=== PATIENT | male | born 1965 | race Caucasian/White ===

== ENCOUNTER 2020-02-06 09:58 | Outpatient (REF) | payer OTHER, SELFPAY ==
[2020-02-06 11:39] LABS: Estimated Average Glucose 148 mg/dL; Hemoglobin A1c % 6.8 %
[2020-02-06 12:03] LABS: Alanine Aminotransferase 22 U/L (0-40); Albumin Level 4.3 g/dL (3.5-5.0); Alkaline Phosphatase 82 U/L (39-117); Anion Gap 13 (12-20); Aspartate Amino Transferase 16 U/L (5-37); Bilirubin Total 1.1 mg/dL (0.0-1.0); Blood Urea Nitrogen 15 mg/dL (9-16); Calcium 8.8 mg/dL (8.4-10.2); Carbon Dioxide 29 mmol/L (22-29); Chloride 101 mmol/L (96-108); Cholesterol 171 mg/dL; Estimated Glomerular Filt Rate > 60; Glucose Fasting 171 mg/dL (60-99); HDL Cholesterol 48 mg/dL; LDL Cholesterol Calculated 99 mg/dl; Potassium 4.3 mmol/l (3.3-5.1); Sodium 139 mmol/L (135-145); Total Protein 7.1 g/dL (6.5-8.0); Triglycerides 123 mg/dL
[2020-02-06 12:41] LABS: Creatinine Urine 62.85 mg/dL; Microalbum/Creatinine Ratio Ur 9.5 ug/mg cr
== END 2020-02-06 09:59 | disposition home or self-care (01) ==
LOC: HO.HMGCLDS 09:58
PROVIDERS: PCP Internal Medicine; Visit Provider Internal Medicine
DX: F41.9 Anxiety disorder, unspecified (principal); E78.5 Hyperlipidemia, unspecified; I10 Essential (primary) hypertension; E11.9 Type 2 diabetes mellitus without complications
CPT/HCPCS: 80053; 80061; 82043; 83036

== ENCOUNTER 2020-06-10 10:19 | Outpatient (REF) | payer OTHER, SELFPAY ==
[2020-06-10 12:02] LABS: Estimated Average Glucose 151 mg/dL; Hemoglobin A1c % 6.9 %
[2020-06-10 12:18] LABS: Alanine Aminotransferase 27 U/L (0-40); Albumin Level 4.4 g/dL (3.5-5.0); Alkaline Phosphatase 86 U/L (39-117); Anion Gap 13 (12-20); Aspartate Amino Transferase 18 U/L (5-37); Bilirubin Total 1.3 mg/dL (0.0-1.0); Blood Urea Nitrogen 16 mg/dL (9-16); Calcium 9.2 mg/dL (8.4-10.2); Carbon Dioxide 29 mmol/L (22-29); Chloride 102 mmol/L (96-108); Cholesterol 179 mg/dL; Estimated Glomerular Filt Rate > 60; Glucose Fasting 161 mg/dL (60-99); HDL Cholesterol 44 mg/dL; LDL Cholesterol Calculated 108 mg/dl; Potassium 4.1 mmol/L (3.3-5.1); Sodium 140 mmol/L (135-145); Triglycerides 137 mg/dL
[2020-06-10 12:22] LABS: Creatinine Urine 48.06 mg/dL; Microalbumin Urine < 5.0 mg/L
== END 2020-06-10 10:20 | disposition home or self-care (01) ==
LOC: HO.HMGCLDS 10:19
PROVIDERS: PCP Internal Medicine; Visit Provider Internal Medicine
DX: I10 Essential (primary) hypertension (principal); E11.9 Type 2 diabetes mellitus without complications; E78.5 Hyperlipidemia, unspecified
CPT/HCPCS: 36415; 80053; 80061; 82043; 83036

== ENCOUNTER 2020-11-01 09:25 | Outpatient (REF) | payer OTHER, SELFPAY ==
[2020-11-01 11:48] LABS: Estimated Average Glucose 137 mg/dL; Hemoglobin A1c % 6.4 %
[2020-11-01 11:52] LABS: Alanine Aminotransferase 16 U/L (0-40); Albumin Level 4.3 g/dL (3.5-5.0); Alkaline Phosphatase 73 U/L (39-117); Anion Gap 14 (12-20); Aspartate Amino Transferase 15 U/L (5-37); Bilirubin Total 1.2 mg/dL (0.0-1.0); Blood Urea Nitrogen 18 mg/dL (9-16); Calcium 9.5 mg/dL (8.4-10.2); Carbon Dioxide 27 mmol/L (22-29); Chloride 104 mmol/L (96-108); Cholesterol 144 mg/dL; Estimated Glomerular Filt Rate > 60; Glucose Fasting 135 mg/dL (60-99); HDL Cholesterol 41 mg/dL; LDL Cholesterol Calculated 81 mg/dl; Potassium 4.1 mmol/L (3.3-5.1); Sodium 141 mmol/L (135-145); Total Protein 7.3 g/dL (6.5-8.0); Triglycerides 111 mg/dL
[2020-11-01 12:01] LABS: Creatinine Urine 70.87 mg/dL; Microalbum/Creatinine Ratio Ur 12.6 ug/mg cr
== END 2020-11-01 09:26 | disposition home or self-care (01) ==
LOC: HO.HMGCLDS 09:25
PROVIDERS: PCP Internal Medicine; Visit Provider Internal Medicine
DX: E11.9 Type 2 diabetes mellitus without complications (principal); E78.5 Hyperlipidemia, unspecified; I10 Essential (primary) hypertension
CPT/HCPCS: 36415; 80053; 80061; 82043; 83036

== ENCOUNTER 2021-02-18 08:40 | Outpatient (REF) | payer OTHER, SELFPAY ==
[2021-02-18 12:05] LABS: Estimated Average Glucose 128 mg/dL; Hemoglobin A1c % 6.1 %
[2021-02-18 12:12] LABS: Alanine Aminotransferase 16 U/L (0-40); Albumin Level 4.3 g/dL (3.5-5.0); Alkaline Phosphatase 74 U/L (39-117); Anion Gap 14 (12-20); Aspartate Amino Transferase 15 U/L (5-37); Bilirubin Total 1.1 mg/dL (0.0-1.0); Blood Urea Nitrogen 18 mg/dL (9-16); Calcium 9.2 mg/dL (8.4-10.2); Carbon Dioxide 28 mmol/L (22-29); Chloride 104 mmol/L (96-108); Cholesterol 167 mg/dL; Estimated Glomerular Filt Rate > 60; Glucose Fasting 102 mg/dL (60-99); HDL Cholesterol 42 mg/dL; LDL Cholesterol Calculated 97 mg/dl; Potassium 4.3 mmol/L (3.3-5.1); Sodium 142 mmol/L (135-145); Total Protein 7.2 g/dL (6.5-8.0); Triglycerides 141 mg/dL
== END 2021-02-18 08:41 | disposition home or self-care (01) ==
LOC: HO.HMGCLDS 08:40
PROVIDERS: PCP Internal Medicine; Visit Provider Internal Medicine
DX: E11.9 Type 2 diabetes mellitus without complications (principal); E78.5 Hyperlipidemia, unspecified; I10 Essential (primary) hypertension
CPT/HCPCS: 36415; 80053; 80061; 83036

== ENCOUNTER 2021-02-25 11:37 | Outpatient (REF) | payer OTHER, SELFPAY ==
[2021-02-25 14:42] LABS: Prostate Specific Antigen Scr 0.66 ng/mL (<0.05-4.0); Vitamin D 25-OH Total 40.6 ng/mL (>30)
[2021-02-25 14:44] LABS: SARS COV2 IgG Negative (Negative)
== END 2021-02-25 11:38 | disposition home or self-care (01) ==
LOC: HO.HMGCLDS 11:37
PROVIDERS: PCP Internal Medicine; Visit Provider Internal Medicine
DX: Z00.00 Encounter for general adult medical examination without abnormal findings (principal); Z12.5 Encounter for screening for malignant neoplasm of prostate; Z20.822 Contact with and (suspected) exposure to COVID-19; E55.9 Vitamin D deficiency, unspecified
CPT/HCPCS: 36415; 82306; 84153; 86769

== ENCOUNTER 2021-03-09 11:10 | Outpatient (REF) | payer OTHER, SELFPAY | END 2021-03-09 11:11 | disposition home or self-care (01) | LOC: HO.HMGCLDS 11:10 | PROVIDERS: Visit Provider Internal Medicine | DX: Z20.822 Contact with and (suspected) exposure to COVID-19 (principal) | CPT/HCPCS: C9803; U0003; U0005 ==

== ENCOUNTER 2021-08-19 08:59 | Outpatient (REF) | payer OTHER, SELFPAY ==
[2021-08-19 11:26] LABS: Hematocrit 44.6 % (42.0-52.0); Hemoglobin 15.1 g/dl (14.0-18.0); Mean Corpuscular HGB Conc 33.9 g/dl (31.0-36.0); Mean Corpuscular Hemoglobin 29.2 pg (27.0-33.0); Mean Corpuscular Volume 86.1 fL (80.0-98.0); Mean Platelet Volume 10.8 fL (9.4-12.4); Platelet Count 228 X10*3/uL (160-400); Red Blood Count 5.18 X10*6/uL (4.60-5.80); White Blood Count 3.9 X10*3/uL (4.8-10.8)
[2021-08-19 11:33] LABS: Estimated Average Glucose 134 mg/dL; Hemoglobin A1c % 6.3 %
[2021-08-19 11:43] LABS: Alanine Aminotransferase 21 U/L (0-40); Albumin Level 4.2 g/dL (3.5-5.0); Alkaline Phosphatase 73 U/L (39-117); Anion Gap 12 (12-20); Aspartate Amino Transferase 17 U/L (5-37); Blood Urea Nitrogen 17 mg/dL (9-16); Calcium 9.4 mg/dL (8.4-10.2); Carbon Dioxide 27 mmol/L (22-29); Chloride 106 mmol/L (96-108); Cholesterol 149 mg/dL; Estimated Glomerular Filt Rate > 60; Glucose Fasting 116 mg/dL (60-99); HDL Cholesterol 42 mg/dL; LDL Cholesterol Calculated 93 mg/dl; Potassium 3.9 mmol/L (3.3-5.1); Sodium 141 mmol/L (135-145); Triglycerides 72 mg/dL
[2021-08-19 11:57] LABS: Creatinine Urine 68.54 mg/dL; Microalbum/Creatinine Ratio Ur 10.2 ug/mg cr
== END 2021-08-19 09:00 | disposition home or self-care (01) ==
LOC: HO.HMGCLDS 08:59
PROVIDERS: PCP Internal Medicine; Visit Provider Internal Medicine
DX: E11.9 Type 2 diabetes mellitus without complications (principal); I10 Essential (primary) hypertension; E78.5 Hyperlipidemia, unspecified
CPT/HCPCS: 36415; 80053; 80061; 82043; 83036; 85027

== ENCOUNTER 2022-03-01 08:12 | Outpatient (REF) | payer OTHER, SELFPAY ==
[2022-03-01 11:18] LABS: MANUAL DIFF FLAG NO
[2022-03-01 11:36] LABS: Basophils Percent Auto 0.7 % (0-2); Eosinophils Absolute Auto 0.2 X10*3/uL (0.0-0.4); Eosinophils Percent Auto 2.5 % (0-4); Hematocrit 46.7 % (42.0-52.0); Hemoglobin 15.6 g/dl (14.0-18.0); Imm Gran Abs Auto 0.04 X10*3/uL (0.00-0.03); Imm Gran Pct Auto 0.7 % (0.0-0.4); Lymphocytes Absolute Auto 2.1 X10*3/uL (1.2-4.9); Lymphocytes Percent Auto 35.6 % (20-40); Mean Corpuscular HGB Conc 33.4 g/dl (31.0-36.0); Mean Corpuscular Hemoglobin 29.1 pg (27.0-33.0); Mean Platelet Volume 10.7 fL (9.4-12.4); Monocytes Absolute Auto 0.6 X10*3/uL (0.1-1.2); Monocytes Percent Auto 9.4 % (2-11); Neutrophils Absolute Auto 3.1 x10*3/uL (2.0-8.3); Neutrophils Percent Auto 51.1 % (45-73); Platelet Count 231 X10*3/uL (160-400); Red Blood Count 5.37 X10*6/uL (4.60-5.80); Red Cell Distribution Width 13.1 % (11.0-16.0)
[2022-03-01 11:52] LABS: Estimated Average Glucose 140 mg/dL; Hemoglobin A1c % 6.5 %
[2022-03-01 11:57] LABS: Alanine Aminotransferase 32 U/L (0-40); Albumin Level 4.5 g/dL (3.5-5.0); Alkaline Phosphatase 91 U/L (39-117); Anion Gap 15 (12-20); Aspartate Amino Transferase 24 U/L (5-37); Bilirubin Total 0.9 mg/dL (0.0-1.0); Blood Urea Nitrogen 19 mg/dL (9-16); Calcium 9.4 mg/dL (8.4-10.2); Carbon Dioxide 27 mmol/L (22-29); Chloride 102 mmol/L (96-108); Cholesterol 177 mg/dL; Estimated Glomerular Filt Rate > 60; Glucose Fasting 144 mg/dL (60-99); HDL Cholesterol 46 mg/dL; LDL Cholesterol Calculated 99 mg/dl; Potassium 3.8 mmol/L (3.3-5.1); Sodium 140 mmol/L (135-145); Total Protein 7.4 g/dL (6.5-8.0); Triglycerides 164 mg/dL
[2022-03-01 12:08] LABS: Creatinine Urine 42.17 mg/dL; Microalbum/Creatinine Ratio Ur 40.3 ug/mg cr
== END 2022-03-01 08:13 | disposition home or self-care (01) ==
LOC: HO.HMGCLDS 08:12
PROVIDERS: PCP Internal Medicine; Visit Provider Internal Medicine
DX: Z00.00 Encounter for general adult medical examination without abnormal findings (principal); E78.5 Hyperlipidemia, unspecified; I10 Essential (primary) hypertension; E11.9 Type 2 diabetes mellitus without complications
CPT/HCPCS: 36415; 80053; 80061; 82043; 83036; 85025

== ENCOUNTER 2022-05-31 08:50 | Outpatient (REF) | payer OTHER, SELFPAY ==
[2022-05-31 11:27] LABS: MANUAL DIFF FLAG NO
[2022-05-31 12:04] LABS: Basophils Percent Auto 0.6 % (0-2); Eosinophils Absolute Auto 0.1 X10*3/uL (0.0-0.4); Eosinophils Percent Auto 1.7 % (0-4); Hematocrit 41.4 % (42.0-52.0); Imm Gran Abs Auto 0.02 X10*3/uL (0.00-0.03); Imm Gran Pct Auto 0.4 % (0.0-0.4); Lymphocytes Percent Auto 38.9 % (20-40); Mean Corpuscular HGB Conc 33.8 g/dl (31.0-36.0); Mean Corpuscular Hemoglobin 29.4 pg (27.0-33.0); Mean Platelet Volume 10.7 fL (9.4-12.4); Monocytes Absolute Auto 0.4 X10*3/uL (0.1-1.2); Monocytes Percent Auto 8.4 % (2-11); Neutrophils Absolute Auto 2.6 x10*3/uL (2.0-8.3); Platelet Count 239 X10*3/uL (160-400); Red Blood Count 4.76 X10*6/uL (4.60-5.80); Red Cell Distribution Width 13.1 % (11.0-16.0); White Blood Count 5.2 X10*3/uL (4.8-10.8)
[2022-05-31 12:20] LABS: Creatinine Urine 76.72 mg/dL; Microalbumin Urine < 5.0 mg/L
[2022-05-31 12:23] LABS: Alanine Aminotransferase 38 U/L (0-40); Alkaline Phosphatase 72 U/L (39-117); Anion Gap 14 (12-20); Aspartate Amino Transferase 23 U/L (5-37); Blood Urea Nitrogen 18 mg/dL (9-16); Carbon Dioxide 26 mmol/L (22-29); Chloride 107 mmol/L (96-108); Cholesterol 169 mg/dL; Estimated Glomerular Filt Rate > 60; Glucose Fasting 146 mg/dL (60-99); HDL Cholesterol 42 mg/dL; LDL Cholesterol Calculated 101 mg/dl; Potassium 4.3 mmol/L (3.3-5.1); Sodium 143 mmol/L (135-145); Total Protein 6.4 g/dL (6.5-8.0); Triglycerides 131 mg/dL
[2022-05-31 12:24] LABS: Estimated Average Glucose 148 mg/dL; Hemoglobin A1c % 6.8 %
[2022-05-31 12:31] LABS: PSA,Total (Free>4and<10) 0.69 ng/mL (0.00-4.00)
== END 2022-05-31 08:51 | disposition home or self-care (01) ==
LOC: HO.HMGCLDS 08:50
PROVIDERS: PCP Internal Medicine; Visit Provider Internal Medicine
DX: Z00.00 Encounter for general adult medical examination without abnormal findings (principal); E11.9 Type 2 diabetes mellitus without complications; E78.5 Hyperlipidemia, unspecified; E55.9 Vitamin D deficiency, unspecified; I10 Essential (primary) hypertension; Z12.5 Encounter for screening for malignant neoplasm of prostate
CPT/HCPCS: 36415; 80053; 80061; 82043; 83036; 84153; 85025

== ENCOUNTER 2022-08-30 09:00 | Outpatient (REF) | payer OTHER, SELFPAY ==
[2022-08-30 11:46] LABS: MANUAL DIFF FLAG NO
[2022-08-30 11:52] LABS: Basophils Percent Auto 0.8 % (0-2); Eosinophils Absolute Auto 0.1 X10*3/uL (0.0-0.4); Hematocrit 43.1 % (42.0-52.0); Hemoglobin 14.6 g/dl (14.0-18.0); Imm Gran Abs Auto 0.02 X10*3/uL (0.00-0.03); Imm Gran Pct Auto 0.4 % (0.0-0.4); Lymphocytes Absolute Auto 1.7 X10*3/uL (1.2-4.9); Lymphocytes Percent Auto 33.7 % (20-40); Mean Corpuscular HGB Conc 33.9 g/dl (31.0-36.0); Mean Corpuscular Hemoglobin 29.4 pg (27.0-33.0); Mean Corpuscular Volume 86.7 fL (80.0-98.0); Mean Platelet Volume 10.8 fL (9.4-12.4); Monocytes Absolute Auto 0.5 X10*3/uL (0.1-1.2); Monocytes Percent Auto 10.2 % (2-11); Neutrophils Absolute Auto 2.6 x10*3/uL (2.0-8.3); Neutrophils Percent Auto 52.9 % (45-73); Platelet Count 220 X10*3/uL (160-400); Red Blood Count 4.97 X10*6/uL (4.60-5.80); Red Cell Distribution Width 13.5 % (11.0-16.0)
[2022-08-30 12:15] LABS: Estimated Average Glucose 126 mg/dL
[2022-08-30 12:42] LABS: Alanine Aminotransferase 22 U/L (0-40); Albumin Level 4.2 g/dL (3.5-5.0); Alkaline Phosphatase 66 U/L (39-117); Anion Gap 11 (12-20); Aspartate Amino Transferase 19 U/L (5-37); Bilirubin Total 1.3 mg/dL (0.0-1.0); Blood Urea Nitrogen 18 mg/dL (9-16); Calcium 9.2 mg/dL (8.4-10.2); Carbon Dioxide 31 mmol/L (22-29); Chloride 105 mmol/L (96-108); Estimated Glomerular Filt Rate > 60; Glucose Fasting 149 mg/dL (60-99); Iron 62 mcg/dL (45-160); Percent Iron Saturation 18 % (15-50); Potassium 4.5 mmol/L (3.3-5.1); Sodium 142 mmol/L (135-145); Total Iron Binding Capacity 341 mcg/dL (228-428); Total Protein 6.6 g/dL (6.5-8.0); Unsaturated Iron Binding 279 ug/dL
== END 2022-08-30 09:01 | disposition home or self-care (01) ==
LOC: HO.HMGCLDS 09:00
PROVIDERS: PCP Internal Medicine; Visit Provider Internal Medicine
DX: E11.9 Type 2 diabetes mellitus without complications (principal); I10 Essential (primary) hypertension; E78.5 Hyperlipidemia, unspecified
CPT/HCPCS: 36415; 80053; 83036; 83540; 85025

== ENCOUNTER 2022-12-28 08:24 | Outpatient (REF) | payer OTHER, SELFPAY ==
[2022-12-28 12:15] LABS: Estimated Average Glucose 117 mg/dL; Hemoglobin A1c % 5.7 % (<6.0)
[2022-12-28 12:30] LABS: Alanine Aminotransferase 17 U/L (0-40); Albumin Level 4.3 g/dL (3.5-5.0); Alkaline Phosphatase 65 U/L (39-117); Anion Gap 13 (12-20); Aspartate Amino Transferase 16 U/L (5-37); Bilirubin Total 1.2 mg/dL (0.0-1.0); Blood Urea Nitrogen 15 mg/dL (9-16); Calcium 9.8 mg/dL (8.4-10.2); Carbon Dioxide 29 mmol/L (22-29); Chloride 102 mmol/L (96-108); Cholesterol 158 mg/dL (<200); Estimated Glomerular Filt Rate > 60; Glucose Fasting 128 mg/dL (60-99); HDL Cholesterol 52 mg/dL (>40); LDL Cholesterol Calculated 90 mg/dL (<100); Potassium 4.6 mmol/L (3.3-5.1); Sodium 139 mmol/L (135-145); Total Protein 7.2 g/dL (6.5-8.0); Triglycerides 82 mg/dL (<150)
[2022-12-28 13:02] LABS: Creatinine Urine 50.79 mg/dL; Microalbumin Urine < 5.0 mg/L
== END 2022-12-28 08:25 | disposition home or self-care (01) ==
LOC: HO.HMGCLDS 08:24
PROVIDERS: PCP Internal Medicine; Visit Provider Internal Medicine
DX: E78.5 Hyperlipidemia, unspecified (principal); E11.9 Type 2 diabetes mellitus without complications; I10 Essential (primary) hypertension
CPT/HCPCS: 36415; 80053; 80061; 82043; 82570; 83036

== ENCOUNTER 2023-01-01 10:13 | Outpatient (AMB) | payer OTHER, SELFPAY ==
[2023-01-01 10:16] VITALS: BP 136/74; PULSE 70; O2SAT 100; BMI 30.4
--- NOTE | 2023-01-01 10:16 | A.OFFPC_ITS ---
Vital Signs 01/01/23 10:16 Height 5 ft 8 in Weight 200 lb BMI 30.4 BP 136/74 Blood Pressure Location Lt brachial Position Sitting Pulse 70 Pulse Source Pulse Oximeter Pulse Oximetry (%) 100 Oxygen Delivery Method Room Air Intake Visit Reasons: 4 month follow up DM Intake Note: Pt is here today for 4 months follow up visit on DM. Allergies telmisartan [Micardis] Allergy (Unknown, Verified 01/01/23 10:19) hives Medication List - Last Reconciled 01/01/23 by Jodi Jackman MD amoxicillin 2,000 mg (4 x 500 mg) PO ONCE betamethasone valerate 0.1% 1 appl topical DAILY PRN glipizide ER 5 mg PO DAILY hydrocortisone 2.5% 1 appl topical BID metformin ER 2,000 mg (4 x 500 mg) PO QAM pravastatin 20 mg PO DAILY triamcinolone acetonide 0.1% 1 appl topical DAILY verapamil ER 240 mg PO DAILY Tobacco use date assessed: 01/01/23 Dental Screening Dental Screen Date: 01/01/23 Did you have a dental visit in the last 12 months?: Yes Did you have a dental problem in the last 6 months where you did not have access to dental care?: No Was dental information given to patient?: Patient has dentist HPI 4 month follow up DM HPI Details Pt presents for f/u for DM 2, HTN, hyperlipid, stable on meds. He has not been taking glipizide 5 mg every day, skipping the weekends and following intermittent fast regimen. Patient lost 7 lb since the last visit. [facility] Medical History Annual physical exam Anxiety Diabetes Diabetic eye exam Hyperlipidemia Hypertension Over weight Vertigo Vitamin D deficiency Surgical History H/O colonoscopy No pertinent past surgical history Family History Father Liver cancer Substance use disorder Mother Lung cancer Brother Substance use disorder Sister Substance use disorder Social History Housing: House Alcohol intake: current Alcohol intake frequency: a few times a month Patient Tobacco Use Status: Never used Tobacco e-Cigarette/Vaping Use: Never Used Current occupational status: employed Cognitive needs: No Hearing needs: No Vision needs: Yes Questionnaire Thrive Questionnaire Date Thrive assessed: 06/06/22 I am a: Patient What is your living situation today?: I have a steady place to live Within the past 12 months, did the food you bought not last and you didn't have the money to get more?: Never true Within the past 12 months, did you worry whether your food would run out before you got money to buy more?: Never true AUDIT C Alcohol Use Questionnaire (AUDIT-C) 1. How often do you have a drink containing alcohol?: 4 or more times a week 2. How many drinks containing alcohol do you have on a typical day when you are drinking?: 1 or 2 3. How often do you have six or more drinks on one occasion?: Never Total Score: 4 GUY-7 AMB Questionnaire GUY-7 Date GUY - 7 assessed: 06/06/22 Feeling nervous, anxious, or on edge: 0 = Not at all Not being able to stop or control worryin = Not at all Worrying too much about different things: 0 = Not at all Trouble relaxin = Not at all Being so restless that it is hard to sit still: 0 = Not at all Becoming easily annoyed or irritable: 0 = Not at all Feeling afraid as if something awful might happen: 0 = Not at all Total GUY-7 score (0-4 normal; 5-9 mild; 10-14 moderate; 15-21 severe): 0 Source: Developed by Drs. Matehus Moreno, Denise Gregg, Pa Quarles and colleagues, with an educational rosario from [employer] Review of Systems Const All systems reviewed & are unremarkable except as noted in HPI and below Reports no additional complaints Eyes Reports no additional complaints ENT Reports no additional complaints Card Reports no additional complaints Resp Reports no additional complaints GI Reports no additional complaints Reports no additional complaints Physical exam (Primary Care) Vital Signs: Last Vital Signs Pulse 70 01/01/23 10:16 BP 136/74 01/01/23 10:16 Pulse Ox 100 01/01/23 10:16 Oxygen Delivery Method Room Air 01/01/23 10:16 BMI result Body Mass Index 30.4 Tobacco/Smoking Status: Tobacco use Status Tobacco use date assessed 01/01/23 01/01/23 10:28 Patient Tobacco Use Status Never used Tobacco 01/01/23 10:28 e-Cigarette/Vaping Use Never Used 01/01/23 10:17 Thrive Assessment: Date of Thrive Assessment Date Thrive assessed 06/06/22 01/01/23 10:17 Const General: no acute distress HENMT Head: Yes normal to inspection Face and sinus: Yes normal facial exam Throat: Yes posterior oropharynx normal Neck Neck: Yes supple Resp Effort & Inspection: normal respiratory effort Auscultation: clear to auscultation bilaterally Cardio Rhythm: regular rhythm Heart sounds: S1 normal heart sound present and S2 normal heart sound present GI Inspection: Yes normal to inspection Palpation (GI): Soft to palpation Percussion: Yes normal to percussion Auscultation: normal bowel sounds Assessment and Plan Assessment & Plan (1) Heart murmur: Comment: Bicuspid aortic valve, f/u with PVC Dr. Barrera Code(s): R01.1 - Cardiac murmur, unspecified Plan: Patient will have echocardiogram to follow-up. He also had brain MRI ordered by Dr. Barrera (2) Hypertension: Comment: ARB hives Code(s): I10 - Essential (primary) hypertension Plan: Continue current medications (3) Diabetes: Code(s): E11.9 - Type 2 diabetes mellitus without complications Plan: A1c is down to 5.7, continue ADA diet start regular physical activity discussed with the patient. He will decrease glipizide to 2.5 mg and was advised not to skip the dose. If he develops hypoglycemia patient was advised to stop glipizide completely. Continue metformin, follow-up in 6 months with a fasting labs before (4) Hyperlipidemia: Code(s): E78.5 - Hyperlipidemia, unspecified Plan: Continue pravastatin Orders: Orders Complete Blood Count no Diff 6 Months E11.9 - Type 2 diabetes mellitus without complications, E78.5 - Hyperlipidemia, unspecified, I10 - Essential (primary) hypertension PSA,Total (Free>4and<10) 6 Months E11.9 - Type 2 diabetes mellitus without complications, E78.5 - Hyperlipidemia, unspecified, I10 - Essential (primary) hypertension Microalbumin, Random (w Creat) 6 Months E11.9 - Type 2 diabetes mellitus without complications, E78.5 - Hyperlipidemia, unspecified, I10 - Essential (primary) hypertension Comprehensive [place]. Panel Fast 6 Months E11.9 - Type 2 diabetes mellitus without complications, E78.5 - Hyperlipidemia, unspecified, I10 - Essential (primary) hypertension Lipid Panel 6 Months E11.9 - Type 2 diabetes mellitus without complications, E78.5 - Hyperlipidemia, unspecified, I10 - Essential (primary) hypertension Hemoglobin A1c 6 Months E11.9 - Type 2 diabetes mellitus without complications, E78.5 - Hyperlipidemia, unspecified, I10 - Essential (primary) hypertension Medications: New glipizide ER 2.5 mg PO DAILY 90 tabs 3RF Coding Level of Care Code Est Pt Level 4 (96639) Diagnoses Heart murmur R01.1 Hypertension I10 Diabetes E11.9 Hyperlipidemia E78.5
== END 2023-01-01 11:09 | disposition home or self-care (01) ==
PROVIDERS: Visit Provider Internal Medicine
DX: R01.1 Cardiac murmur, unspecified (principal); I10 Essential (primary) hypertension; E11.9 Type 2 diabetes mellitus without complications; E78.5 Hyperlipidemia, unspecified
CPT/HCPCS: 99214

== ENCOUNTER 2023-07-13 10:59 | Outpatient (REF) | payer OTHER, SELFPAY ==
[2023-07-13 13:45] LABS: Hematocrit 44.3 % (42.0-52.0); Hemoglobin 14.8 g/dl (14.0-18.0); Mean Corpuscular HGB Conc 33.4 g/dl (31.0-36.0); Mean Corpuscular Hemoglobin 29.5 pg (27.0-33.0); Mean Corpuscular Volume 88.2 fL (80.0-98.0); Mean Platelet Volume 10.4 fL (9.4-12.4); Platelet Count 211 X10*3/uL (160-400); Red Blood Count 5.02 X10*6/uL (4.60-5.80); Red Cell Distribution Width 13.4 % (11.0-16.0); White Blood Count 4.4 X10*3/uL (4.8-10.8)
[2023-07-13 14:12] LABS: Creatinine Urine 93.51 mg/dL; Microalbum/Creatinine Ratio Ur 5.3 ug/mg cr (<30)
[2023-07-13 14:21] LABS: Estimated Average Glucose 114 mg/dL; Hemoglobin A1C 148.7389 umol/L; Hemoglobin A1c % 5.6 % (<6.0)
[2023-07-13 14:23] LABS: Alanine Aminotransferase 18 U/L (0-40); Albumin Level 4.1 g/dL (3.5-5.0); Alkaline Phosphatase 57 U/L (39-117); Anion Gap 9 (12-20); Aspartate Amino Transferase 16 U/L (5-37); Blood Urea Nitrogen 21 mg/dL (9-16); Calcium 9.3 mg/dL (8.4-10.2); Carbon Dioxide 30 mmol/L (22-29); Chloride 104 mmol/L (96-108); Cholesterol 198 mg/dL (<200); Estimated Glomerular Filt Rate > 60; Glucose Fasting 119 mg/dL (60-99); HDL Cholesterol 53 mg/dL (>40); LDL Cholesterol Calculated 127 mg/dL (<100); Potassium 4.3 mmol/L (3.3-5.1); Sodium 139 mmol/L (135-145); Total Protein 7.2 g/dL (6.5-8.0); Triglycerides 90 mg/dL (<150)
[2023-07-13 14:35] LABS: PSA,Total (Free>4and<10) 0.74 ng/mL (0.00-4.00)
== END 2023-07-13 11:00 | disposition home or self-care (01) ==
LOC: HO.HMGCLDS 10:59
PROVIDERS: PCP Internal Medicine; Visit Provider Internal Medicine
DX: Z12.5 Encounter for screening for malignant neoplasm of prostate (principal); E11.9 Type 2 diabetes mellitus without complications; I10 Essential (primary) hypertension; E78.5 Hyperlipidemia, unspecified
CPT/HCPCS: 36415; 80053; 80061; 82043; 82570; 83036; 84153; 85027

== ENCOUNTER 2023-07-20 11:04 | Outpatient (AMB) | payer OTHER, SELFPAY ==
[2023-07-20 11:09] VITALS: BP 120/74; PULSE 61; O2SAT 61
--- NOTE | 2023-07-20 11:09 | A.OFFPC_ITS ---
Vital Signs 07/20/23 11:09 Height 5 ft 8 in Weight 197 lb BMI 30.0 BP 120/74 Blood Pressure Location Lt brachial Position Sitting Pulse 61 Pulse Source Pulse Oximeter Pulse Oximetry (%) 61 L Oxygen Delivery Method Room Air Intake Visit Reasons: DM F/U Intake Note: Pt is here today for a follow up visit on DM labs. Allergies telmisartan [Micardis] Allergy (Unknown, Verified 07/20/23 11:10) hives Medication List - Last Reconciled 07/20/23 by Jodi Jackman MD amoxicillin 2,000 mg (4 x 500 mg) PO ONCE betamethasone valerate 0.1% 1 appl topical DAILY PRN glipizide ER 2.5 mg PO DAILY hydrocortisone 2.5% 1 appl topical BID metformin ER 2,000 mg (4 x 500 mg) PO QAM pravastatin 20 mg PO DAILY triamcinolone acetonide 0.1% 1 appl topical DAILY verapamil ER 240 mg PO DAILY Tobacco use date assessed: 07/20/23 Dental Screening Dental Screen Date: 07/20/23 Did you have a dental visit in the last 12 months?: Yes Did you have a dental problem in the last 6 months where you did not have access to dental care?: No Was dental information given to patient?: Patient has dentist HPI DM F/U HPI Details Pt presents for PE. [facility] Medical History (Updated 07/20/23 @ 12:00 by Jodi Jackman MD) Vitamin D deficiency Annual physical exam Vertigo Anxiety Diabetic eye exam Over weight Hypertension Diabetes Hyperlipidemia Surgical History H/O colonoscopy No pertinent past surgical history Family History Father Liver cancer Substance use disorder Mother Lung cancer Brother Substance use disorder Sister Substance use disorder Social History Housing: House Alcohol intake: current Alcohol intake frequency: a few times a month Patient Tobacco Use Status: Never used Tobacco e-Cigarette/Vaping Use: Never Used service: No Current occupational status: employed Cognitive needs: No Hearing needs: No Vision needs: Yes Questionnaire PHQ-9 Over the last 2 weeks, how often have you been bothered by any of the following problems? 1. Little interest or pleasure in doing things: not at all 2. Feeling down, depressed, or hopeless: not at all 3. Trouble falling or staying asleep, or sleeping too much: not at all 4. Feeling tired or having little energy: not at all 5. Poor appetite or overeating: not at all 6. Feeling bad about yourself - or that you are a failure or have let yourself or your family down: not at all 7. Trouble concentrating on things, such as reading the newspaper or watching television: not at all 8. Moving or speaking so slowly that other people could have noticed. Or the opposite - being so fidgety or restless that you have been moving around a lot more than usual: not at all 9. Thoughts that you would be better off or of hurting yourself in some way: not at all Total score: 0 Depression Screening Interpretation: Negative Depression Screening Done: Yes Source: Developed by Drs. Matheus Moreno, Denise Gregg, Pa Quarles and colleagues, with an educational rosario from [employer]. Thrive Questionnaire Date Thrive assessed: 07/20/23 I am a: Patient What is your living situation today?: I have a steady place to live Within the past 12 months, did the food you bought not last and you didn't have the money to get more?: Never true Within the past 12 months, did you worry whether your food would run out before you got money to buy more?: Never true Do you have trouble paying for medicines?: No Do you have trouble getting transportation to medical appointments?: No Do you have trouble paying your heating and electricity bill?: No Do you have trouble taking care of your child, family member or friend?: No Do you have trouble with day-to-day activities such as bathing, preparing meals, shopping, managing finances, etc.?: No Are you currently unemployed and looking for a job?: No Are you interested in more education?: No Please select the resources that you would like help with: None THRIVE Score: 0 AUDIT C Alcohol Use Questionnaire (AUDIT-C) 1. How often do you have a drink containing alcohol?: 4 or more times a week 2. How many drinks containing alcohol do you have on a typical day when you are drinking?: 1 or 2 3. How often do you have six or more drinks on one occasion?: Never Total Score: 4 GUY-7 AMB Questionnaire GUY-7 Date GUY - 7 assessed: 07/20/23 Feeling nervous, anxious, or on edge: 0 = Not at all Not being able to stop or control worryin = Not at all Worrying too much about different things: 0 = Not at all Trouble relaxin = Not at all Being so restless that it is hard to sit still: 0 = Not at all Becoming easily annoyed or irritable: 0 = Not at all Feeling afraid as if something awful might happen: 0 = Not at all Total UGY-7 score (0-4 normal; 5-9 mild; 10-14 moderate; 15-21 severe): 0 Source: Developed by Drs. Matheus Moreno, Denise Gregg, Pa Quarles and colleagues, with an educational rosario from [employer]. Review of Systems Const All systems reviewed & are unremarkable except as noted in HPI and below Reports no additional complaints Eyes Reports no additional complaints ENT Reports no additional complaints Card Reports no additional complaints Resp Reports no additional complaints GI Reports no additional complaints Reports no additional complaints Musc Reports no additional complaints Physical exam (Primary Care) Vital Signs: Last Vital Signs Pulse 61 07/20/23 11:09 BP 120/74 07/20/23 11:09 Pulse Ox 61 L 07/20/23 11:09 Oxygen Delivery Method Room Air 07/20/23 11:09 BMI result Body Mass Index 30.0 Tobacco/Smoking Status: Tobacco use Status Tobacco use date assessed 07/20/23 07/20/23 11:11 Patient Tobacco Use Status Never used Tobacco 07/20/23 11:11 e-Cigarette/Vaping Use Never Used 07/20/23 11:09 PHQ-9: PHQ-9 Score PHQ-9: Total score 0 07/20/23 11:27 Depression Screening Interpretation: Negative Thrive Assessment: Date of Thrive Assessment Date Thrive assessed 07/20/23 07/20/23 11:27 Const General: no acute distress HENMT Head: Yes normal to inspection Ears: hearing grossly normal bilaterally Face and sinus: Yes normal facial exam Mouth: Normal oral and palatal mucosa present Eyes General: appearance normal, both eyes and all related structures Neck Neck: Yes no lymphadenopathy and Yes supple Resp Effort & Inspection: normal respiratory effort Auscultation: clear to auscultation bilaterally Cardio Rhythm: regular rhythm Heart sounds: S1 normal heart sound present and S2 normal heart sound present GI Inspection: Yes normal to inspection Palpation (GI): Soft to palpation Percussion: Yes normal to percussion Auscultation: normal bowel sounds Extrem Other: Diabetic foot exam skin is intact monofilament and vibration sensation intact bilaterally Assessment and Plan Assessment & Plan (1) Bicuspid aortic valve: Comment: Echo mild AR 03/08 unchanged from 2020, f/u PVC Echo q 2 yrs Code(s): Q23.1 - Congenital insufficiency of aortic valve (2) Annual physical exam: Code(s): Z00.00 - Encounter for general adult medical examination without abnormal fin dings Plan: Well-balanced diet increase physical activity weight loss discussed with the patient. He had negative colonoscopy in [address] Laura, recheck in 7-10 yrs (3) Hypertension: Comment: ARB hives Code(s): I10 - Essential (primary) hypertension Plan: Continue current medication (4) Diabetes: Code(s): E11.9 - Type 2 diabetes mellitus without complications Plan: A1c is 5.6, continue current medications ADA diet increase exercise and weight loss discussed with the patient. Return in 6 months with a fasting labs before (5) Hyperlipidemia: Code(s): E78.5 - Hyperlipidemia, unspecified Plan: Continue pravastatin Coding Level of Care Code Est Pt Prev Care 40-64y(60453) Diagnoses Bicuspid aortic valve Q23.1 Annual physical exam Z00.00 Hypertension I10 Diabetes E11.9 Hyperlipidemia E78.5
== END 2023-07-20 11:54 | disposition home or self-care (01) ==
PROVIDERS: PCP Internal Medicine; Visit Provider Internal Medicine
DX: Q23.1 Congenital insufficiency of aortic valve (principal); Z00.00 Encounter for general adult medical examination without abnormal findings; I10 Essential (primary) hypertension; E11.9 Type 2 diabetes mellitus without complications; E78.5 Hyperlipidemia, unspecified
CPT/HCPCS: 99396

== ENCOUNTER 2024-01-14 11:27 | Outpatient (REF) | payer OTHER, SELFPAY ==
[2024-01-14 13:18] LABS: MANUAL DIFF FLAG NO
[2024-01-14 13:28] LABS: Basophils Percent Auto 0.8 % (0-2); Eosinophils Absolute Auto 0.1 X10*3/uL (0.0-0.4); Eosinophils Percent Auto 2.8 % (0-4); Hematocrit 44.2 % (42.0-52.0); Hemoglobin 14.9 g/dl (14.0-18.0); Imm Gran Abs Auto 0.01 X10*3/uL (0.00-0.03); Imm Gran Pct Auto 0.2 % (0.0-0.4); Lymphocytes Absolute Auto 1.8 X10*3/uL (1.2-4.9); Lymphocytes Percent Auto 35.4 % (20-40); Mean Corpuscular HGB Conc 33.7 g/dl (31.0-36.0); Mean Corpuscular Hemoglobin 29.5 pg (27.0-33.0); Mean Corpuscular Volume 87.5 fL (80.0-98.0); Mean Platelet Volume 10.4 fL (9.4-12.4); Monocytes Absolute Auto 0.5 X10*3/uL (0.1-1.2); Monocytes Percent Auto 8.9 % (2-11); Neutrophils Absolute Auto 2.6 x10*3/uL (2.0-8.3); Neutrophils Percent Auto 51.9 % (45-73); Platelet Count 191 X10*3/uL (160-400); Red Blood Count 5.05 X10*6/uL (4.60-5.80); Red Cell Distribution Width 13.2 % (11.0-16.0); White Blood Count 5.1 X10*3/uL (4.8-10.8)
[2024-01-14 13:38] LABS: Alanine Aminotransferase 13 U/L (0-40); Albumin Level 4.4 g/dL (3.5-5.0); Alkaline Phosphatase 62 U/L (39-117); Anion Gap 14 (12-20); Aspartate Amino Transferase 13 U/L (5-37); Blood Urea Nitrogen 22 mg/dL (9-16); Calcium 9.7 mg/dL (8.4-10.2); Carbon Dioxide 27 mmol/L (22-29); Chloride 101 mmol/L (96-108); Cholesterol 144 mg/dL (<200); Estimated Average Glucose 117 mg/dL; Estimated Glomerular Filt Rate > 60; Glucose Fasting 109 mg/dL (60-99); HDL Cholesterol 44 mg/dL (>40); Hemoglobin A1c % 5.7 % (<6.0); LDL Cholesterol Calculated 79 mg/dL (<100); Potassium 4.1 mmol/L (3.3-5.1); Sodium 138 mmol/L (135-145); Total Protein 7.4 g/dL (6.5-8.0); Triglycerides 107 mg/dL (<150)
[2024-01-14 14:10] LABS: Creatinine Urine 23.46 mg/dL; Microalbumin Urine < 5.0 mg/L
== END 2024-01-14 11:28 | disposition home or self-care (01) ==
LOC: HO.HMGCLDS 11:27
PROVIDERS: PCP Internal Medicine; Visit Provider Internal Medicine
DX: E78.5 Hyperlipidemia, unspecified (principal); I10 Essential (primary) hypertension; E11.9 Type 2 diabetes mellitus without complications
CPT/HCPCS: 36415; 80053; 80061; 82043; 82570; 83036; 85025

== ENCOUNTER 2024-01-16 11:05 | Outpatient (AMB) | payer OTHER, SELFPAY ==
[2024-01-16 11:06] VITALS: BP 108/66; PULSE 61; O2SAT 99; BMI 28.9
--- NOTE | 2024-01-16 11:06 | A.OFFPC_ITS ---
Vital Signs 01/16/24 11:06 Height 5 ft 8 in Weight 190 lb BMI 28.9 BP 108/66 Blood Pressure Location Rt brachial Position Sitting Pulse 61 Pulse Source Pulse Oximeter Pulse Oximetry (%) 99 Oxygen Delivery Method Room Air Intake Visit Reasons: 6 month follow up Intake Note: Pt is here today for 6 months follow up visit on DM and labs. Allergies telmisartan [Micardis] Allergy (Unknown, Verified 01/16/24 11:07) hives Medication List - Last Reconciled 01/16/24 by Jodi Jackman MD amoxicillin 2,000 mg (4 x 500 mg) PO ONCE betamethasone valerate 0.1% apply topically daily PRN; hydrocortisone 2.5% 1 appl topical BID metformin ER 2,000 mg (4 x 500 mg) PO QAM pravastatin 20 mg PO DAILY triamcinolone acetonide 0.1% 1 appl topical DAILY verapamil ER 240 mg PO DAILY Tobacco use date assessed: 01/16/24 Dental Screening Dental Screen Date: 07/20/23 HPI 6 month follow up HPI Details Patient presents for the follow-up of hypertension hyperlipidemia type 2 diabetes. He lost 10 lb in the last year eating low carb diet and exercising regularly PFSH Medical History Vitamin D deficiency Annual physical exam Vertigo Anxiety Diabetic eye exam Over weight Hypertension Diabetes Hyperlipidemia Surgical History H/O colonoscopy No pertinent past surgical history Family History Father Liver cancer Substance use disorder Mother Lung cancer Brother Substance use disorder Sister Substance use disorder Social History Housing: House Alcohol intake: current Alcohol intake frequency: a few times a month Patient Tobacco Use Status: Never used Tobacco e-Cigarette/Vaping Use: Never Used service: No Current occupational status: employed Cognitive needs: No Hearing needs: No Vision needs: Yes Questionnaire PHQ-9 Over the last 2 weeks, how often have you been bothered by any of the following problems? 1. Little interest or pleasure in doing things: not at all 2. Feeling down, depressed, or hopeless: not at all 3. Trouble falling or staying asleep, or sleeping too much: not at all 4. Feeling tired or having little energy: not at all 5. Poor appetite or overeating: not at all 6. Feeling bad about yourself - or that you are a failure or have let yourself or your family down: not at all 7. Trouble concentrating on things, such as reading the newspaper or watching television: not at all 8. Moving or speaking so slowly that other people could have noticed. Or the opposite - being so fidgety or restless that you have been moving around a lot more than usual: not at all 9. Thoughts that you would be better off or of hurting yourself in some way: not at all Total score: 0 Depression Screening Interpretation: Negative Depression Screening Done: Yes [id number] - PHQ-9 Billing: Yes Source: Developed by Drs. Matheus Moreno, Denise Gregg, Pa Quarles and colleagues, with an educational rosario from [employer]. Thrive Questionnaire Date Thrive assessed: 01/16/24 I am a: Patient What is your living situation today?: I have a steady place to live Within the past 12 months, did the food you bought not last and you didn't have the money to get more?: Never true Within the past 12 months, did you worry whether your food would run out before you got money to buy more?: Never true Do you have trouble paying for medicines?: No Do you have trouble getting transportation to medical appointments?: No Do you have trouble paying your heating and electricity bill?: No Do you have trouble taking care of your child, family member or friend?: No Do you have trouble with day-to-day activities such as bathing, preparing meals, shopping, managing finances, etc.?: No Are you currently unemployed and looking for a job?: No Are you interested in more education?: No Please select the resources that you would like help with: None Currently or been in a relationship where the following occur: No concerns reported THRIVE Score: 0 AUDIT C Alcohol Use Questionnaire (AUDIT-C) 1. How often do you have a drink containing alcohol?: 4 or more times a week 2. How many drinks containing alcohol do you have on a typical day when you are drinking?: 1 or 2 3. How often do you have six or more drinks on one occasion?: Less than monthly Total Score: 5 GUY-7 AMB Questionnaire GUY-7 Date GUY - 7 assessed: 01/16/24 Feeling nervous, anxious, or on edge: 0 = Not at all Not being able to stop or control worryin = Not at all Worrying too much about different things: 0 = Not at all Trouble relaxin = Not at all Being so restless that it is hard to sit still: 0 = Not at all Becoming easily annoyed or irritable: 0 = Not at all Feeling afraid as if something awful might happen: 0 = Not at all Total GUY-7 score (0-4 normal; 5-9 mild; 10-14 moderate; 15-21 severe): 0 Source: Developed by Drs. Matheus Moreno, Denise Gregg, Pa Quarles and colleagues, with an educational rosario from [employer]. GUY-7 Assessment Billing GUY-7 Assessment Tool: GUY-7 Assessment 64214 Review of Systems Const All systems reviewed & are unremarkable except as noted in HPI and below Eyes Reports no additional complaints ENT Reports no additional complaints Card Reports no additional complaints Resp Reports no additional complaints GI Reports no additional complaints Reports no additional complaints Physical exam (Primary Care) Vital Signs: Last Vital Signs Pulse 61 01/16/24 11:06 BP 108/66 01/16/24 11:06 Pulse Ox 99 01/16/24 11:06 Oxygen Delivery Method Room Air 01/16/24 11:06 BMI result Body Mass Index 28.9 Tobacco/Smoking Status: Tobacco use Status Tobacco use date assessed 01/16/24 01/16/24 11:07 Patient Tobacco Use Status Never used Tobacco 01/16/24 11:07 e-Cigarette/Vaping Use Never Used 01/16/24 11:07 PHQ-9: PHQ-9 Score PHQ-9: Total score 0 01/16/24 11:23 Depression Screening Interpretation: Negative Thrive Assessment: Date of Thrive Assessment Date Thrive assessed 01/16/24 01/16/24 11:23 Currently or been in a relationship where the following occur: No concerns reported Const General: no acute distress HENMT Head: Yes normal to inspection Throat: Yes posterior oropharynx normal Resp Effort & Inspection: normal respiratory effort Auscultation: clear to auscultation bilaterally Cardio Rhythm: regular rhythm Heart sounds: S1 normal heart sound present and S2 normal heart sound present GI Inspection: Yes normal to inspection Coding Level of Care Code Est Pt Level 4 (12642) Diagnoses Hyperlipidemia E78.5 Diabetes E11.9 Hypertension I10 Additional Codes GUY-7 Assessment Billing - GUY-7 Assessment Tool: GUY-7 Assessment 76147 ([id number]) Assessment & Plan Assessment & Plan (1) Hyperlipidemia: Code(s): E78.5 - Hyperlipidemia, unspecified Category: Medical Plan: Continue statin (2) Diabetes: Code(s): E11.9 - Type 2 diabetes mellitus without complications Category: Medical Plan: A1c is 5.7, ADA diet regular exercise weight loss discussed with the patient. He will stop glipizide and continue metformin follow-up in 6 months (3) Hypertension: Comment: ARB hives Code(s): I10 - Essential (primary) hypertension Category: Medical Plan: Controlled on verapamil Orders: Orders Complete Blood Count Auto Diff 6 Months E11.9 - Type 2 diabetes mellitus without complications, E78.5 - Hyperlipidemia, unspecified, I10 - Essential (primary) hypertension Hemoglobin A1c 6 Months E11.9 - Type 2 diabetes mellitus without complications, E78.5 - Hyperlipidemia, unspecified, I10 - Essential (primary) hypertension Comprehensive [place]. Panel Fast 6 Months E11.9 - Type 2 diabetes mellitus without complications, E78.5 - Hyperlipidemia, unspecified, I10 - Essential (primary) hypertension Lipid Panel 6 Months E11.9 - Type 2 diabetes mellitus without complications, E78.5 - Hyperlipidemia, unspecified, I10 - Essential (primary) hypertension Microalbumin, Random (w Creat) 6 Months E11.9 - Type 2 diabetes mellitus without complications, E78.5 - Hyperlipidemia, unspecified, I10 - Essential (primary) hypertension PSA,Total (Free>4and<10) 6 Months E11.9 - Type 2 diabetes mellitus without complications, E78.5 - Hyperlipidemia, unspecified, I10 - Essential (primary) hypertension UA w Microscopic 6 Months E11.9 - Type 2 diabetes mellitus without complications, E78.5 - Hyperlipidemia, unspecified, I10 - Essential (primary) hypertension Medications: Discontinued glipizide ER Discontinued Reason: Doctor's Order 2.5 mg PO DAILY 90 tabs 1RF
== END 2024-01-16 12:01 | disposition home or self-care (01) ==
PROVIDERS: PCP Internal Medicine; Visit Provider Internal Medicine
DX: E78.5 Hyperlipidemia, unspecified (principal); E11.9 Type 2 diabetes mellitus without complications; I10 Essential (primary) hypertension

== ENCOUNTER → 2024-01-16 11:05 | Outpatient (BNVA) | payer OTHER, SELFPAY | PROVIDERS: PCP Internal Medicine; Visit Provider Internal Medicine | DX: E78.5 Hyperlipidemia, unspecified (principal); E11.9 Type 2 diabetes mellitus without complications; I10 Essential (primary) hypertension; Z79.84 Long term (current) use of oral hypoglycemic drugs; Z79.899 Other long term (current) drug therapy | CPT/HCPCS: 96127 ==

== ENCOUNTER 2024-08-01 09:50 | Outpatient (REF) | payer OTHER, SELFPAY ==
--- OUTSIDE RECORDS SUMMARY | 2024-08-01 10:31 | XMS_ITS | Clinical Summary ---
Author Organization [employer] [facility] Address [address] [place] [address] Care Team Providers Care Loss Prevention Supervisor Name Role Phone Jodi Jackman MD Primary Care Provider [phone] Surgical History Surgery Date Site/Laterality Comments WISDOM TOOTH EXTRACTION PROCEDURE: HISTORICAL WISDOM TEETH EXTRACTION OTHER SURGICAL HISTORY PROCEDURE: ---- OTHER ----; COMMENT: ear surgery age 4 OTHER SURGICAL HISTORY 2014 PROCEDURE: BONE REPLACEMENT GRAFT; COMMENT: left lower jaw Medical History Medical History Date Comments Other atopic dermatitis and related conditions 06/01/2006 DX:Other atopic dermatitis a nd related conditions DDD (degenerative disc disea se), cervical 06/05/2017 DX:DDD (degenerative disc di sease), cervical; COMMENT: CT 05/25/17 Pulmonic regurgitation 06/05/2017 DX:Pulmon ic regurgitation; COMMENT: ECHO 05/24/17 mild. EF = 70 % Post traumatic amnesia 06/05/2017 DX:Post t raumatic amnesia; COMMENT: Fell 05/23/17. No LOC Aortic regurgitation 06/01/2006 DX:Aortic r egurgitation; COMMENT: 1-2 plus antibiotic prophylaxis Depressive disorder 06/01/2006 DX:Depressiv e disorder Diabetes mellitus type 2, co ntrolled ([facility] V24, [facility] V28) 06/01/2006 DX:Diabetes mellitus type 2 , controlled ([facility]) Esophageal reflux 08/21/2014 DX:Esophageal reflux Facial droop 06/05/2017 DX:Facial droop; COMMENT: Known left sided facial droop secondary to ear surgery Hyperlipidemia 10/08/2006 DX:Hyperlipidemi a Hypertension 08/21/2014 DX:Hypertension Family History Medical History Relation Name Comments Diabetes Brother 1 Hypertension Father liver canc er, smoker, etoh, CABG Diabetes Maternal Grandmother Lung cancer Mother Diabetes Sister 1 Relation Name Status Comments Brother 1 Brother 2 Alive etho Brother 3 Alive etoh Father (Age mid 70's) live r cancer, CABG Maternal Grandmother Mother (Age mid 70's) lung cancer Sister 1 Sister 2 Alive Sister 3 Alive etoh Social History Tobacco Use Types Packs/Day Years Used Date Smoking Tobacco: Never Smokeless Tobacco: Never Alcohol Use Standard Drinks/Week Comments Yes 0 (1 standard drink = 0.6 oz pur e alcohol) Sex and Gender Information Value Date Recorded Sex Assigned at Not on file Legal Sex Male 9:23 AM EST Gender Identity Not on file Sexual Orientation Not on file Obstetrics History Last Filed Vital Signs Vital Sign Reading Time Taken Comments Blood Pressure 108/72 12/12/2022 8:27 AM EDT Sit ting L Arm Pulse 59 12/12/2022 8:27 AM EDT Temperature - - Respiratory Rate - - Oxygen Saturation - - Inhaled Oxygen Concentration - - Weight 89.4 kg (197 lb) 02/07/2023 10:45 AM EDT Height 175.3 cm (5' 9 ) 02/07/2023 10:45 AM EDT Body Mass Index 29.09 02/07/2023 10:45 AM EDT Plan of Treatment Health Maintenance Due Date Last Done Comments Diabetes: Annual GFR (Glomerular Filtration Rate) 1964 Diabetes: Annual Foot Exam 1974 Diabetes: Annual Retina Eye Exam 1974 Pneumococcal Vaccine: 50+ Years (2 of 2 - PCV) 2014 03/16/2000 Zoster Vaccines (1 of 2) 2014 DTaP,Tdap,and Td Vaccines (3 - Td or Tdap) 05/30/2021 05/30/2011, 02/14/2001 Cholesterol Screening (Lipid Panel) 05/15/2023 Colorectal Cancer Screening: Colonoscopy 05/15/2023 01/19/2009 Depression Screening 05/15/2023 Diabetes: Annual Urine Albumin-Creatinine Ratio (uACR) 05/15/2023 Diabetes: Blood Sugar Contro l Test (HGBA1C) 05/15/2023 HIV Screening 05/15/2023 Hepatitis C Screening 05/15/2023 Hypertension/CHF/CAD Annual BMP Blood Test 05/15/2023 Social Influencers of Health Screening 05/15/2023 COVID-19 Vaccine (1 - 2023-2 5 season) 2023 Influenza Vaccine (Season Ended) 2024 02/14/2006 RSV Immunization Adult Patients (1 - 1-dose 75+ series) 2039 Pneumococcal Vaccine: Pediatrics (0 to 5 Years) and At-Risk Patients (6 to 64 Years) Aged Out 03/16/2000 No longer eligible b ased on patient's age to complete this topic HIB Vaccines Aged Out No longer eligi ble based on patient's age to complete this topic HPV Vaccines Aged Out No longer eligi ble based on patient's age to complete this topic Hepatitis A Vaccines Aged Out No long er eligible based on patient's age to complete this topic Hepatitis B Vaccines Aged Out No long er eligible based on patient's age to complete this topic IPV Vaccines Aged Out No longer eligi ble based on patient's age to complete this topic MMR Vaccines Aged Out No longer eligi ble based on patient's age to complete this topic Meningococcal ACWY Vaccine Aged Out N o longer eligible based on patient's age to complete this topic Meningococcal B Vaccine Aged Out No l onger eligible based on patient's age to complete this topic RSV Immunization Patients Under 20 months Aged Out No longer eligible b ased on patient's age to complete this topic Varicella Vaccines Aged Out No longer eligible based on patient's age to complete this topic Procedures Procedure Name Priority Date/Time Associated Diagnosis Comments EXTERNAL COLONOSCOPY REPORT Routine 01/19/2009 1:37 PM EDT from Last 3 Months or Most Recently Relevant to Health Maintenance Results * External Colonoscopy Report (01/19/2009 1:37 PM EDT) Anatomical Region Laterality Modality Endoscopy us Historical Provider GI~PROCEDURE ORDERABLES F inal Result from Last 3 Months or Most Recently Relevant to Health Maintenance Care Teams Loss Prevention Supervisor Relationship Specialty Start Date End Date Jodi Jackman MD PCP - General Internal Medicine 04/03/17
[2024-08-01 13:15] LABS: MANUAL DIFF FLAG NO
[2024-08-01 13:21] LABS: Appearance Urine Clear; Color Urine Yellow; Glucose Urine UA Negative (Negative); Leukocyte Esterase Urine Negative (Negative); Nitrite Urine Negative (Negative); Specific Gravity - Urine 1.015 (1.005-1.025); UMIC TRIGGER UA YES; Urine Blood Trace (Negative); Urine Ketones Negative (Negative); Urine Protein Negative (Neg-Trace)
[2024-08-01 13:28] LABS: Bacteria Urine None Seen (None Seen); Hyaline Casts Urine 0-2 /LPF (0-2); RBC Urine 0-2 /HPF (0-2); Squamous Epithelial Cell Urine 0-2 /HPF (0-2); WBC Urine 0-5 /HPF (0-5)
[2024-08-01 13:32] LABS: Eosinophils Absolute Auto 0.1 X10*3/uL (0.0-0.4); Eosinophils Percent Auto 2.4 % (0-4); Hematocrit 43.4 % (42.0-52.0); Hemoglobin 14.7 g/dl (14.0-18.0); Imm Gran Abs Auto 0.01 X10*3/uL (0.00-0.03); Imm Gran Pct Auto 0.2 % (0.0-0.4); Lymphocytes Absolute Auto 1.4 X10*3/uL (1.2-4.9); Lymphocytes Percent Auto 33.5 % (20-40); Mean Corpuscular HGB Conc 33.9 g/dl (31.0-36.0); Mean Corpuscular Hemoglobin 29.2 pg (27.0-33.0); Mean Corpuscular Volume 86.3 fL (80.0-98.0); Mean Platelet Volume 10.3 fL (9.4-12.4); Monocytes Absolute Auto 0.4 X10*3/uL (0.1-1.2); Neutrophils Absolute Auto 2.2 x10*3/uL (2.0-8.3); Neutrophils Percent Auto 52.9 % (45-73); Platelet Count 203 X10*3/uL (160-400); Red Blood Count 5.03 X10*6/uL (4.60-5.80); Red Cell Distribution Width 13.1 % (11.0-16.0); White Blood Count 4.1 X10*3/uL (4.8-10.8)
[2024-08-01 13:39] LABS: Estimated Average Glucose 128 mg/dL; Hemoglobin A1C 166.4239 umol/L; Hemoglobin A1c % 6.1 % (<6.0); Total Hemoglobin (HGBA1C) 3864.7769 umol/L
[2024-08-01 14:04] LABS: PSA,Total (Free>4and<10) 0.76 ng/mL (0.00-4.00)
[2024-08-01 14:10] LABS: Creatinine Urine 37.11 mg/dL; Microalbumin Urine < 5.0 mg/L
[2024-08-01 14:21] LABS: Alanine Aminotransferase 19 U/L (0-40); Albumin Level 4.3 g/dL (3.5-5.0); Anion Gap 12 (12-20); Aspartate Amino Transferase 19 U/L (5-37); Bilirubin Total 1.3 mg/dL (0.0-1.0); Blood Urea Nitrogen 21 mg/dL (9-16); Calcium 9.5 mg/dL (8.4-10.2); Carbon Dioxide 28 mmol/L (22-29); Chloride 103 mmol/L (96-108); Cholesterol 157 mg/dL (<200); Estimated Glomerular Filt Rate > 60; Glucose Fasting 121 mg/dL (60-99); HDL Cholesterol 50 mg/dL (>40); LDL Cholesterol Calculated 89 mg/dL (<100); Sodium 139 mmol/L (135-145); Total Protein 7.2 g/dL (6.5-8.0); Triglycerides 90 mg/dL (<150)
[2024-08-01 19:38] LABS: Alkaline Phosphatase 57 U/L (39-117)
== END 2024-08-01 09:51 | disposition home or self-care (01) ==
LOC: HO.HMGCLDS 09:50
PROVIDERS: PCP Internal Medicine; Visit Provider Internal Medicine
DX: I10 Essential (primary) hypertension (principal); E78.5 Hyperlipidemia, unspecified; E11.9 Type 2 diabetes mellitus without complications; Z12.5 Encounter for screening for malignant neoplasm of prostate
CPT/HCPCS: 36415; 80053; 80061; 81001; 82043; 82570; 83036; 84153; 85025

== ENCOUNTER 2024-08-08 11:14 | Outpatient (AMB) | payer OTHER, SELFPAY ==
[2024-08-08 11:28] VITALS: BP 122/70; PULSE 73; RESP 18; TEMP 36.8; O2SAT 99; BMI 28.3
--- NOTE | 2024-08-08 11:28 | MHC.PC.OV ---
Vital Signs 08/08/24 11:28 Height 5 ft 8 in Weight 186 lb BMI 28.3 BP 122/70 Blood Pressure Location Lt brachial Position Sitting Respiration 18 Pulse 73 Pulse Source Pulse Oximeter Temp 98.3 F Temp Source Oral Pulse Oximetry (%) 99 Oxygen Delivery Method Room Air Intake Visit Reasons: Annual PE Intake Note: Pt is here today for PE. Allergies telmisartan [Micardis] Allergy (Unknown, Verified 08/08/24 11:28) hives Medication List - Last Reconciled 08/08/24 by Jodi Jackman MD amoxicillin 2,000 mg (4 x 500 mg) PO ONCE betamethasone valerate 0.1% apply topically daily PRN; hydrocortisone 2.5% 1 appl topical BID metformin ER 2,000 mg (4 x 500 mg) PO QAM pravastatin 20 mg PO DAILY triamcinolone acetonide 0.1% 1 appl topical DAILY verapamil ER 240 mg PO DAILY Tobacco use date assessed: 08/08/24 Dental Screening Dental Screen Date: 08/08/24 Did you have a dental visit in the last 12 months?: Yes Did you have a dental problem in the last 6 months where you did not have access to dental care?: No Was dental information given to patient?: Patient has dentist HPI Annual PE HPI Details Patient presents for physical PFSH Medical History Vitamin D deficiency Annual physical exam Vertigo Anxiety Diabetic eye exam Over weight Hypertension Diabetes Hyperlipidemia Surgical History H/O colonoscopy No pertinent past surgical history Family History Father Liver cancer Substance use disorder Mother Lung cancer Brother Substance use disorder Sister Substance use disorder Social History Housing: House Alcohol intake: current Alcohol intake frequency: a few times a month Patient Tobacco Use Status: Never used Tobacco e-Cigarette/Vaping Use: Never Used service: No Current occupational status: employed Cognitive needs: No Hearing needs: No Vision needs: Yes Questionnaire PHQ-9 Over the last 2 weeks, how often have you been bothered by any of the following problems? 1. Little interest or pleasure in doing things: not at all 2. Feeling down, depressed, or hopeless: not at all 3. Trouble falling or staying asleep, or sleeping too much: not at all 4. Feeling tired or having little energy: not at all 5. Poor appetite or overeating: not at all 6. Feeling bad about yourself - or that you are a failure or have let yourself or your family down: not at all 7. Trouble concentrating on things, such as reading the newspaper or watching television: not at all 8. Moving or speaking so slowly that other people could have noticed. Or the opposite - being so fidgety or restless that you have been moving around a lot more than usual: not at all 9. Thoughts that you would be better off or of hurting yourself in some way: not at all Total score: 0 Depression Screening Interpretation: Negative Depression Screening Done: Yes 75523 - PHQ-9 Billing: Yes Source: Developed by Drs. Matheus Moreno, Denise Gregg, Pa Quarles and colleagues, with an educational rosario from [employer]. Thrive Questionnaire Date Thrive assessed: 08/08/24 I am a: Patient What is your living situation today?: I have a steady place to live Within the past 12 months, did the food you bought not last and you didn't have the money to get more?: Never true Within the past 12 months, did you worry whether your food would run out before you got money to buy more?: Never true Do you have trouble paying for medicines?: No Do you have trouble getting transportation to medical appointments?: No Do you have trouble paying your heating and electricity bill?: No Do you have trouble taking care of your child, family member or friend?: No Do you have trouble with day-to-day activities such as bathing, preparing meals, shopping, managing finances, etc.?: No Are you currently unemployed and looking for a job?: No Are you interested in more education?: No Please select the resources that you would like help with: None Currently or been in a relationship where the following occur: No concerns reported THRIVE Score: 0 AUDIT C Alcohol Use Questionnaire (AUDIT-C) 1. How often do you have a drink containing alcohol?: 4 or more times a week 2. How many drinks containing alcohol do you have on a typical day when you are drinking?: 1 or 2 3. How often do you have six or more drinks on one occasion?: Less than monthly Total Score: 5 GUY-7 AMB Questionnaire GUY-7 Date GUY - 7 assessed: 08/08/24 Feeling nervous, anxious, or on edge: 0 = Not at all Not being able to stop or control worryin = Not at all Worrying too much about different things: 0 = Not at all Trouble relaxin = Not at all Being so restless that it is hard to sit still: 0 = Not at all Becoming easily annoyed or irritable: 0 = Not at all Feeling afraid as if something awful might happen: 0 = Not at all Total GUY-7 score (0-4 normal; 5-9 mild; 10-14 moderate; 15-21 severe): 0 Source: Developed by Drs. Matheus Moreno, Denise Gregg, Pa Quarles and colleagues, with an educational rosario from [employer]. GUY-7 Assessment Billing GUY-7 Assessment Tool: GUY-7 Assessment 66317 Review of Systems Const All systems reviewed & are unremarkable except as noted in HPI and below Eyes Reports no additional complaints ENT Reports no additional complaints Card Reports no additional complaints Resp Reports no additional complaints GI Reports no additional complaints Reports no additional complaints Physical exam (Primary Care) Vital Signs: Last Vital Signs Temp 98.3 F 08/08/24 11:28 Pulse 73 08/08/24 11:28 Resp 18 08/08/24 11:28 BP 122/70 08/08/24 11:28 Pulse Ox 99 08/08/24 11:28 Oxygen Delivery Method Room Air 08/08/24 11:28 BMI result Body Mass Index 28.3 Tobacco/Smoking Status: Tobacco use Status Tobacco use date assessed 08/08/24 08/08/24 11:29 Patient Tobacco Use Status Never used Tobacco 08/08/24 11:29 e-Cigarette/Vaping Use Never Used 08/08/24 11:29 PHQ-9: PHQ-9 Score PHQ-9: Total score 0 08/08/24 11:29 Depression Screening Interpretation: Negative Thrive Assessment: Date of Thrive Assessment Date Thrive assessed 08/08/24 08/08/24 11:29 Currently or been in a relationship where the following occur: No concerns reported Const General: no acute distress HENMT Head: Yes normal to inspection Ears: hearing grossly normal bilaterally Neck Neck: Yes no lymphadenopathy and Yes supple Resp Effort & Inspection: normal respiratory effort Auscultation: clear to auscultation bilaterally Cardio Rhythm: regular rhythm Heart sounds: S1 normal heart sound present and S2 normal heart sound present GI Inspection: Yes normal to inspection Palpation (GI): Soft to palpation Percussion: Yes normal to percussion Auscultation: normal bowel sounds Extrem Other: Diabetic foot exam skin is intact monofilament and vibration sensation intact bilateral Coding Level of Care Code Est Pt Prev Care 40-64y(45694) Diagnoses Annual physical exam Z00.00 Diabetes E11.9 Additional Codes GUY-7 Assessment Billing - GUY-7 Assessment Tool: GUY-7 Assessment 37579 ([id number]) PHQ-9 - 51183 - PHQ-9 Billing: Yes ([id number]) Assessment & Plan Assessment & Plan (1) Annual physical exam: Comment: Negative colonoscopy 2020 repeat in 10 years Code(s): Z00.00 - Encounter for general adult medical examination without abnormal findings Category: Medical Plan: Well-balanced diet regular exercise discussed with the patient (2) Diabetes: Comment: Patient refused Pneumovax Code(s): E11.9 - Type 2 diabetes mellitus without complications Category: Medical Plan: A1c is 6.1, ADA diet increase exercise weight loss discussed with the patient continue metformin return in 3 months with a fasting labs before Orders: Orders Hemoglobin A1c 3 Months E11.9 - Type 2 diabetes mellitus without complications UA w Microscopic Today Z00.00 - Encounter for general adult medical examination without abnormal findings Comprehensive [place]. Panel Fast 3 Months E11.9 - Type 2 diabetes mellitus without complications Urine Cytology Today E11.9 - Type 2 diabetes mellitus without complications, R31.21 - Asymptomatic microscopic hematuria
--- OUTSIDE RECORDS SUMMARY | 2024-08-08 12:09 | XMS_ITS | Clinical Summary ---
Author Organization [facility] Address [address] [place] [address] Care Team Providers Care Supervisor Hot Dip Plating Name Role Phone Jodi Jackman MD Primary Care Provider Surgical History Surgery Date Site/Laterality Comments WISDOM [...] disorder Diabetes mellitus type 2, co ntrolled ([facility] V24, [facility] V28) 06/01/2006 DX:Diabetes mellitus type 2 , controlled ([facility]) Esophageal reflux 08/21/2014 DX:Esophageal reflux Facial droop [...] Recently Relevant to Health Maintenance Care Teams Supervisor Hot Dip Plating Relationship Specialty Start Date End Date Jodi Jackman MD PCP - General Internal Medicine 04/03/17
== END 2024-08-08 12:19 | disposition home or self-care (01) ==
LOC: HO.HMCC 11:15
PROVIDERS: PCP Internal Medicine; Visit Provider Internal Medicine
DX: Z00.00 Encounter for general adult medical examination without abnormal findings (principal); E11.9 Type 2 diabetes mellitus without complications

== ENCOUNTER 2024-08-08 11:14 | Outpatient (REF) | payer OTHER, SELFPAY ==
--- OUTSIDE RECORDS SUMMARY | 2024-08-08 13:01 | XMS_ITS | Clinical Summary ---
Author Organization [facility] Address [address] [place] [address] Care Team Providers Care Electromechanical Engineer Name Role Phone Jodi Jackman MD Primary Care Provider [phone] Surgical History Surgery Date Site/Laterality Comments WISDOM [...] disorder Diabetes mellitus type 2, co ntrolled ([facility] V24, [facility] V28) 06/01/2006 DX:Diabetes mellitus type 2 , controlled ([facility]) Esophageal reflux 08/21/2014 DX:Esophageal reflux Facial [...] Recently Relevant to Health Maintenance Care Teams Electromechanical Engineer Relationship Specialty Start Date End Date Jodi Jackman MD PCP - General Internal Medicine 04/03/17
[2024-08-08 16:13] LABS: Appearance Urine Turbid; Color Urine Yellow; Glucose Urine UA Negative (Negative); Leukocyte Esterase Urine Negative (Negative); Nitrite Urine Negative (Negative); Specific Gravity - Urine 1.025 (1.005-1.025); UMIC TRIGGER UA YES; Urine Blood Small (1+) (Negative); Urine Ketones Negative (Negative); Urine Protein Negative (Neg-Trace)
[2024-08-08 16:24] LABS: Bacteria Urine None Seen (None Seen); Calcium Oxalate Crystals Urine Present; Hyaline Casts Urine 0-2 /LPF (0-2); RBC Urine 0-2 /HPF (0-2); Squamous Epithelial Cell Urine 0-2 /HPF (0-2); WBC Urine 0-5 /HPF (0-5)
== END 2024-08-08 11:15 | disposition home or self-care (01) ==
LOC: HO.HMGCLDS 11:14
PROVIDERS: PCP Internal Medicine; Visit Provider Internal Medicine
DX: Z00.00 Encounter for general adult medical examination without abnormal findings (principal); E11.9 Type 2 diabetes mellitus without complications; R31.21 Asymptomatic microscopic hematuria
CPT/HCPCS: 81001; 96127

== ENCOUNTER 2024-09-12 08:54 | Outpatient (REF) | payer OTHER, SELFPAY ==
--- NOTE | ~2024-09-12 | US_ITS ---
CLINICAL HISTORY: R31.21 - Asymptomatic microscopic hematuria US Renal Comparison: None Findings: Right kidney normal size and echotexture, 11.4 cm length. Left kidney normal size and echotexture, 11.2 cm length. No hydronephrosis of either kidney. Normal color Doppler. There is a bosniak 1 left renal cortical 1.0 x 0.8 x 1.3 cm cyst Urinary bladder is unremarkable. Prevoid volume 148 mL. Postvoid volume 13 mL. Bilateral ureteral jets are visualized. The prostate gland measures 4.2 x 3.1 x 3.1 cm IMPRESSION: 1. No acute findings. This document has been electronically signed by: Reyes Newell MD on 09/13/2024 10:06:07
--- OUTSIDE RECORDS SUMMARY | 2024-09-12 08:57 | XMS_ITS | Clinical Summary ---
Author Organization [employer] [facility] Address [address] [place] [address] Care Team Providers Care Credit Risk Analytics Manager Name Role Phone Jodi Jackman MD Primary Care Provider [phone] Surgical History Surgery Date Site/Laterality Comments WISDOM [...] disorder Diabetes mellitus type 2, co ntrolled ([facility]24, [facility] V28) 06/01/2006 DX:Diabetes mellitus type 2 , controlled ([facility]) Esophageal reflux 08/21/2014 DX:Esophageal reflux Facial droop [...] Recently Relevant to Health Maintenance Care Teams Credit Risk Analytics Manager Relationship Specialty Start Date End Date Jodi Jackman MD PCP - General Internal Medicine 04/03/17
== END 2024-09-12 08:55 | disposition home or self-care (01) ==
LOC: HO.HMGCX 08:54
PROVIDERS: PCP Internal Medicine; Visit Provider Internal Medicine
DX: R31.21 Asymptomatic microscopic hematuria (principal)
CPT/HCPCS: 76770

== ENCOUNTER → 2024-09-12 08:57 | Outpatient (BNV) | payer OTHER, SELFPAY | PROVIDERS: PCP Internal Medicine; Visit Provider Specialist | DX: N28.1 Cyst of kidney, acquired (principal) | CPT/HCPCS: 76770 ==

== ENCOUNTER 2024-11-03 07:49 | Outpatient (REF) | payer OTHER, SELFPAY ==
--- OUTSIDE RECORDS SUMMARY | 2024-11-03 07:52 | XMS_ITS | Clinical Summary ---
Author Organization [facility] Address [address] [place] [address] Care Team Providers Care Heel Compressor Name Role Phone Jodi Jackman MD Primary Care Provider [phone] Surgical History Surgery Date Site/Laterality Comments WISDOM [...] disorder Diabetes mellitus type 2, co ntrolled ([facility] V24, [facility] V28) 06/01/2006 DX:Diabetes mellitus type 2 , controlled ([facility]) Esophageal reflux 08/21/2014 DX:Esophageal reflux Facial [...] 02/07/2023 10:45 AM EDT Plan of Treatment Upcoming Encounters Date Type Department Care Team (Late st Contact Info) Description 01/12/2025 10:40 AM EDT Office Visit [facility] [address] [facility] [address] [place] [address] Mell Payne, CONSUMER EXPERIENCE CONSULTANT [address] [facility] [address] [place] [address] Health Maintenance Due Date Last Done Comments [...] 05/15/2023 Colorectal Cancer Screening: Colonoscopy 05/15/2023 01/19/2009 Diabetes: Annual Urine Albumin-Creatinine Ratio (uACR) 05/15/2023 Diabetes: Blood Sugar Contro l Test (HGBA1C) 05/15/2023 HIV Screening 05/15/2023 Hepatitis C Screening 05/15/2023 Hypertension/CHF/CAD Annual BMP Blood Test 05/15/2023 Social Influencers of Health Screening 05/15/2023 COVID-19 Vaccine (1 - 2023-2 5 season) 2023 Depression Screening 04/16/2024 Influenza Vaccine (#1) 2024 02/14/2006 RSV Immunization Adult Patients (1 - 1-dose 75+ series) 2039 HIB Vaccines Aged Out No longer eligi [...] Recently Relevant to Health Maintenance Care Teams Heel Compressor Relationship Specialty Start Date End Date Jodi Jackman MD PCP - General Internal Medicine 04/03/17
[2024-11-03 10:27] LABS: Hemoglobin A1C 183.2879 umol/L; Total Hemoglobin (HGBA1C) 3783.5420 umol/L
[2024-11-03 10:55] LABS: Alanine Aminotransferase 17 U/L (0-40); Albumin Level 4.3 g/dL (3.5-5.0); Alkaline Phosphatase 62 U/L (39-117); Anion Gap 10 (12-20); Aspartate Amino Transferase 17 U/L (5-37); Blood Urea Nitrogen 21 mg/dL (9-16); Calcium 8.8 mg/dL (8.4-10.2); Carbon Dioxide 28 mmol/L (22-29); Chloride 105 mmol/L (96-108); Estimated Glomerular Filt Rate > 60; Potassium 4.1 mmol/L (3.3-5.1); Sodium 139 mmol/L (135-145); Total Protein 7.1 g/dL (6.5-8.0)
== END 2024-11-03 07:50 | disposition home or self-care (01) ==
LOC: HO.HMGCLDS 07:49
PROVIDERS: PCP Internal Medicine; Visit Provider Internal Medicine
DX: E11.9 Type 2 diabetes mellitus without complications (principal)
CPT/HCPCS: 36415; 80053; 83036

== ENCOUNTER 2024-11-06 08:56 | Outpatient (AMB) | payer OTHER, SELFPAY ==
[2024-11-06 09:01] VITALS: BP 120/66; PULSE 65; RESP 18; TEMP 36.8; O2SAT 99; BMI 29.3
--- NOTE | 2024-11-06 09:01 | MHC.PC.OV ---
Vital Signs 11/06/24 09:01 Height 5 ft 8 in Weight 193 lb BMI 29.3 BP 120/66 Blood Pressure Location Lt brachial Position Sitting Respiration 18 Pulse 65 Pulse Source Pulse Oximeter Temp 98.2 F Temp Source Oral Pulse Oximetry (%) 99 Oxygen Delivery Method Room Air Intake Visit Reasons: 3m follow up Intake Note: Pt is here today for 3 months follow up visit. Allergies telmisartan (Micardis) Allergy (Unknown, Verified 11/06/24 09:01) hives Medication List - Last Reconciled 11/06/24 by Jodi Jackman MD amoxicillin 2,000 mg (4 x 500 mg) PO ONCE betamethasone valerate 0.1% apply topically daily PRN; hydrocortisone 2.5% 1 appl topical BID metformin ER 2,000 mg (4 x 500 mg) PO QAM pravastatin 20 mg PO DAILY triamcinolone acetonide 0.1% 1 appl topical DAILY verapamil ER 240 mg PO DAILY Tobacco use date assessed: 11/06/24 Dental Screening Dental Screen Date: 08/08/24 HPI 3m follow up HPI Details Pt presents for f/u DM 2, HTN, hyperlipid, stable on meds. PFSH Medical History Vitamin D deficiency Annual physical exam Vertigo Anxiety Diabetic eye exam Over weight Hypertension Diabetes Hyperlipidemia Surgical History H/O colonoscopy No pertinent past surgical history Family History Father Liver cancer Substance use disorder Mother Lung cancer Brother Substance use disorder Sister Substance use disorder Social History Housing: House Alcohol intake: current Alcohol intake frequency: a few times a month Patient Tobacco Use Status: Never used Tobacco e-Cigarette/Vaping Use: Never Used service: No Current occupational status: employed Cognitive needs: No Hearing needs: No Vision needs: Yes Questionnaire Thrive Questionnaire Date Thrive assessed: 08/08/24 I am a: Patient What is your living situation today?: I have a steady place to live Within the past 12 months, did the food you bought not last and you didn't have the money to get more?: Never true Within the past 12 months, did you worry whether your food would run out before you got money to buy more?: Never true Do you have trouble paying for medicines?: No Do you have trouble getting transportation to medical appointments?: No Do you have trouble paying your heating and electricity bill?: No Do you have trouble taking care of your child, family member or friend?: No Do you have trouble with day-to-day activities such as bathing, preparing meals, shopping, managing finances, etc.?: No Are you currently unemployed and looking for a job?: No Are you interested in more education?: No Please select the resources that you would like help with: None Currently or been in a relationship where the following occur: No concerns reported THRIVE Score: 0 GUY-7 AMB Questionnaire GUY-7 Date GUY - 7 assessed: 08/08/24 Source: Developed by Drs. Matheus Moreno, Denise Gregg, Pa Quarles and colleagues, with an educational rosario from [employer] Review of Systems Const All systems reviewed & are unremarkable except as noted in HPI and below Reports no additional complaints Eyes Reports no additional complaints ENT Reports no additional complaints Card Reports no additional complaints Resp Reports no additional complaints GI Reports no additional complaints Reports no additional complaints Physical exam (Primary Care) Vital Signs: Last Vital Signs Temp 98.2 F 11/06/24 09:01 Pulse 65 11/06/24 09:01 Resp 18 11/06/24 09:01 BP 120/66 11/06/24 09:01 Pulse Ox 99 11/06/24 09:01 Oxygen Delivery Method Room Air 11/06/24 09:01 BMI result Body Mass Index 29.3 Tobacco/Smoking Status: Tobacco use Status Tobacco use date assessed 11/06/24 11/06/24 09:05 Patient Tobacco Use Status Never used Tobacco 11/06/24 09:05 e-Cigarette/Vaping Use Never Used 11/06/24 09:05 Thrive Assessment: Date of Thrive Assessment Date Thrive assessed 08/08/24 11/06/24 09:05 Currently or been in a relationship where the following occur: No concerns reported Const General: no acute distress HENMT Head: Yes normal to inspection Ears: hearing grossly normal bilaterally General nose exam: Normal external nose present Face and sinus: Yes normal facial exam Mouth: Normal oral and palatal mucosa present Eyes General: appearance normal, both eyes and all related structures Neck Neck: Yes no meningeal signs and Yes supple Resp Effort & Inspection: normal respiratory effort Auscultation: clear to auscultation bilaterally Cardio Rhythm: regular rhythm Heart sounds: S1 normal heart sound present and S2 normal heart sound present GI Inspection: Yes normal to inspection Palpation (GI): Soft to palpation Percussion: Yes normal to percussion Auscultation: normal bowel sounds Neuro General: no meningeal signs Results AMB Random Glucose (hemocue) AMB Random Glucose (hemocue) 149 mg/dL Last Edit by LUIS E Childress on 11/06/24 09:51 Results Reviewed Results Reviewed: Laboratory Last Values Random Glu (Clinic) 149 mg/dL 11/06/24 09:49 Coding Level of Care Code Est Pt Level 4 (18306) Diagnoses Hypertension I10 Hyperlipidemia E78.5 Diabetes E11.9 Microscopic hematuria R31.29 Assessment & Plan Assessment & Plan (1) Hypertension: Comment: ARB hives Code(s): I10 - Essential (primary) hypertension Category: Medical Plan: Continue current medications (2) Hyperlipidemia: Code(s): E78.5 - Hyperlipidemia, unspecified Category: Medical Plan: cont statin (3) Diabetes: Comment: Patient refused Pneumovax Code(s): E11.9 - Type 2 diabetes mellitus without complications Category: Medical Plan: A1c is 6.6, ADA diet regular exercise weight loss discussed with the patient continue metformin follow-up in 3 months with a fasting labs before (4) Microscopic hematuria: Comment: Negative renal and bladder ultrasound 08/2024 Code(s): R31.29 - Other microscopic hematuria Category: Medical Plan: For microscopic hematuria obtain urine cytology and referred to Urology. Orders: Orders AMB Random Glucose (hemocue) Today Z13.9 - Encounter for screening, unspecified Urine Cytology Today R31.9 - Hematuria, unspecified Comprehensive [place]. Panel Fast 3 Months E11.9 - Type 2 diabetes mellitus without complications, I10 - Essential (primary) hypertension Hemoglobin A1c 3 Months E11.9 - Type 2 diabetes mellitus without complications, I10 - Essential (primary) hypertension Lipid Panel 3 Months E11.9 - Type 2 diabetes mellitus without complications, I10 - Essential (primary) hypertension Complete Blood Count Auto Diff 3 Months E11.9 - Type 2 diabetes mellitus without complications, I10 - Essential (primary) hypertension Microalbumin, Random (w Creat) 3 Months E11.9 - Type 2 diabetes mellitus without complications, I10 - Essential (primary) hypertension UA w Microscopic Today E11.9 - Type 2 diabetes mellitus without complications, I10 - Essential (primary) hypertension Referrals Urology Referral R31.29 - Other microscopic hematuria
--- OUTSIDE RECORDS SUMMARY | 2024-11-06 09:24 | XMS_ITS | Clinical Summary ---
Author Organization [facility] Address [address] [place] [address] Care Team Providers Care Steam Turbine Operator Name Role Phone Jodi Jackman MD Primary Care Provider [phone] Surgical History Surgery Date Site/Laterality Comments WISDOM [...] disorder Diabetes mellitus type 2, co ntrolled ([facility] V24, [facility] V28) 06/01/2006 DX:Diabetes mellitus type 2 , controlled ([facility]) Esophageal reflux 08/21/2014 DX:Esophageal reflux Facial droop [...] Description 01/12/2025 10:40 AM EDT Office Visit [facility] [address] [facility] [address] [place] [address] Mell Payne, STRINGS TEACHER [address] [facility] [address] [place] [address] Health Maintenance Due Date Last Done Comments [...] Region Laterality Modality Endoscopy us Historical Provider MD SMITH~PROCEDURE ORDERABLES F inal Result from Last 3 Months or Most Recently Relevant to Health Maintenance Insurance [facility] Care Teams Steam Turbine Operator Relationship Specialty Start Date End Date Jodi Jackman MD PCP - General Internal Medicine 04/03/17
== END 2024-11-06 09:44 | disposition home or self-care (01) ==
LOC: HO.HMCC 08:56
PROVIDERS: PCP Internal Medicine; Visit Provider Internal Medicine
DX: I10 Essential (primary) hypertension (principal); E78.5 Hyperlipidemia, unspecified; E11.9 Type 2 diabetes mellitus without complications; R31.29 Other microscopic hematuria; Z13.9 Encounter for screening, unspecified

== ENCOUNTER 2024-11-06 08:56 | Outpatient (REF) | payer OTHER, SELFPAY ==
[2024-11-06 13:50] LABS: Appearance Urine Clear; Glucose Urine UA Negative (Negative); PH 7.0 (5.0-9.0); Specific Gravity - Urine 1.025 (1.005-1.025)
== END 2024-11-06 08:57 | disposition home or self-care (01) ==
LOC: HO.HMGCLDS 08:56
PROVIDERS: PCP Internal Medicine; Visit Provider Internal Medicine
DX: I10 Essential (primary) hypertension (principal); E78.5 Hyperlipidemia, unspecified; E11.9 Type 2 diabetes mellitus without complications; R31.29 Other microscopic hematuria; Z79.84 Long term (current) use of oral hypoglycemic drugs
CPT/HCPCS: 81001; 82948; 88112

== ENCOUNTER 2025-01-15 08:56 | Outpatient (REF) | payer OTHER, SELFPAY | END 2025-01-15 08:57 | disposition home or self-care (01) | LOC: HO.LAB 08:56 | PROVIDERS: PCP Internal Medicine; Visit Provider Urology | DX: R31.29 Other microscopic hematuria (principal); N40.0 Benign prostatic hyperplasia without lower urinary tract symptoms; N28.1 Cyst of kidney, acquired | CPT/HCPCS: 81003; 88112 ==

== ENCOUNTER 2025-01-15 08:56 | Outpatient (AMB) | payer OTHER, SELFPAY ==
--- OUTSIDE RECORDS SUMMARY | 2025-01-12 10:40 | XMS_ITS | Encounter Summary ---
Author Organization [facility] Address [address] [place] [address] Care Team Providers Care Internal Medicine Nurse Practitioner Name Role Phone Jodi Jackman MD Primary Care Provider [phone] Reason for Referral * Imaging (Routine) - Pending Review Specialty Diagnoses / Procedures Referred By Contac t Referred To Contact Cardiology Diagnoses Bicuspid aortic valve Procedures Transthoracic echocardiogram (TTE) complete with PRN contrast, bubble, strain, and 3D order panel AZ TTE W 2D IMAGE COMPLETE W DOPPLER ECHO & COLOR FLOW DOPPLER ECHO AZ ARABELLA 2D COMPLETE W/CONTRAST OR W & WO CONTRAST WITH DOPPLER Mell Payne NP [address] [facility] [address] [place] [address] Phone: tel: fax: [facility] Referral ID Status Reason Start Date Expiration Date V isits Requested Visits Authorized [id number] Pending Review 01/12/2025 01/12/2026 1 1 Reason for Visit * Reason Comments Follow-up Encounter Details Date Type Department Care Team (Late st Contact Info) Description 01/12/2025 10:40 AM EDT Office Visit [facility] [address] [facility] [address] [place] [address] Mell Payne NP [address] [place] [address] Bicuspid aortic valve (Primary Dx); Primary hypertension; Other hyperlipidemia Social History Tobacco Use Types Packs/Day Years Used Date Smoking Tobacco: Never Smokeless Tobacco: Never Alcohol Use Standard Drinks/Week Comments Yes 0 (1 standard drink = 0.6 oz pur e alcohol) Sex and Gender Information Value Date Recorded Sex Assigned at Not on file Legal Sex Male 9:23 AM EST Gender Identity Not on file Sexual Orientation Not on file documented as of this encounter Last Filed Vital Signs Vital Sign Reading Time Taken Comments Blood Pressure 148/80 01/12/2025 10:42 AM EDT Pulse 66 01/12/2025 10:42 AM EDT Temperature - - Respiratory Rate - - Oxygen Saturation 97% 01/12/2025 10:42 AM EDT Inhaled Oxygen Concentration - - Weight 90.1 kg (198 lb 9.6 oz) 01/12/2025 10:42 AM EDT Height 175.3 cm (5' 9 ) 01/12/2025 10:42 AM EDT Body Mass Index 29.33 01/12/2025 10:42 AM EDT documented in this encounter Progress Notes * Mell Payne NP - 01/14/2025 7:51 PM EDTAssociated Problem(s): Other hyperlipidemia The patient remains on statin therapy. I do not have a recent lipid profile. Ideally, given his diabetes, LDL should be at least less than 100, but is close to 70 as possible. For now, defer further management to his PCP * Mell Payne NP - 01/14/2025 7:51 PM EDTAssociated Problem(s): Primary hypertension Blood pressure somewhat robust in the office today. Continue calcium channel siac at current dose. Increasing his exercise will also improve his blood pressure management. In fact, sometimes exercise and weight loss can take the place of additional antihypertensives. Based on his labs, if his blood pressure remains elevated, would recommend addition of thiazide diuretic or ANA inhibitor. He has a listed allergy to an ARB with hives. I am not sure if this is a class effect or possibly just medication specific. This can be pursued further by his PCP should his blood pressure remain elevated.He has a visit coming up with her in the next month or so * Mell Payne NP - 01/14/2025 7:49 PM EDTAssociated Problem(s): Bicuspid aortic valve The patient has a bicuspid aortic valve but has not had any significant stenosis. He has mild AI. He is asymptomatic, and has no activity limitations. Will update his echocardiogram at his convenience as it has been about 2 years since his last. He does not have any concerning murmurs. I will notify him of the results once they are available to me. documented in this encounter Plan of Treatment Scheduled Orders Name Type Priority Associated Diagnoses Order Schedule Transthoracic echocardiogram (TTE) complete with PRN contrast, bubble, strain, and 3D order panel Echocardiography Routine Bicuspid aortic valve 1 Occurrences starting 01/12/2025 until 01/12/2026 documented as of this encounter Procedures Procedure Name Priority Date/Time Associated Diagnosis Comments ECG 12-LEAD Routine 01/14/2025 7:53 PM EDT Bicuspid aortic valve documented in this encounter Results * ECG 12 lead (01/14/2025 7:53 PM EDT) 01/12/2025 10:4 7 AM EDT 01/12/2025 11:03 AM EDT us Mell Payne NP ECG ORDERABLES Final Result GEMUSE documented in this encounter Visit Diagnoses Diagnosis Bicuspid aortic valve- Primary Congenital insufficiency of aortic valve Primary hypertension Unspecified essential hypertension Other hyperlipidemia documented in this encounter Historical Medications * This list may reflect changes made after this encounter. cholecalciferol, vitamin D3, (VITAMIN D3 ORAL) Take by mouth at bedtime. VITAMIN K2 ORAL Take by mouth at bedtime. coenzyme Q-10 200 mg capsule Take 1 capsule (200 mg total) by mouth at bedtime. verapamil ER (VERELAN) 240 mg 24 hr capsule Take 1 capsule (240 mg total) by mouth at bedtime. 04/03/2017 pravastatin (PRAVACHOL) 20 mg tablet Take 1 tablet (20 mg total) by mouth at bedtime. metFORMIN XR (GLUCOPHAGE-XR) 500 mg 24 hr tablet Take 4 tablets (2,000 mg total) by mouth at bedtime. 02/08/2017 added in this encounter Care Teams Internal Medicine Nurse Practitioner Relationship Specialty Start Date End Date Jodi Jackman MD [address] [place] [id number] PCP - General Internal Medicine 01/08/25 documented as of this encounter
--- NOTE | 2025-01-15 09:07 | MHC.OFFVIS ---
Intake Visit Reasons: Microscopic hematuria Intake Note: New patient presents today for initial visit for microscopic hematuria Urology Medication:None Blood Thinner:None Antibiotic Allergies:None Allergies telmisartan (Micardis) Allergy (Unknown, Verified 01/15/25 09:08) regan PAPPAS Comments Details: 01/15/2025--Matheus is here as a new patient evaluation for microscopic hematuria he had a renal ultrasound done August 2024 small simple renal cyst otherwise normal finding. Diabetes comorbidity, denies nicotine use. History of Present Illness The patient is a 59-year-old male presenting with microscopic hematuria. The hematuria was initially detected in July during a routine urine test, but subsequent testing in October showed no blood in the urine. Despite the intermittent nature of the hematuria, further evaluation is necessary to rule out any underlying pathology. A renal ultrasound conducted in August revealed a small, simple renal cyst, but no other abnormalities were noted. The prostate was found to be mildly enlarged, but no masses were detected in the kidneys. The patient has a history of diabetes mellitus and denies any nicotine use. He also reports a family history of liver cancer, likely due to occupational exposure to chemicals, and lung cancer, attributed to secondhand smoke exposure. The patient experiences increased urgency in urination, which he attributes to aging, and reports nocturia occurring every 2-3 hours, a pattern that has persisted for many years. He consumes fluids, including caffeinated beverages and beer, which may contribute to his urinary symptoms. The patient has a known aortic insufficiency and requires antibiotics for dental procedures to prevent endocarditis. Results - Labs: Urine test in July showed microscopic hematuria; October test showed no blood - Imaging: Renal ultrasound in August showed a small, simple renal cyst - Imaging: Prostate mildly enlarged, no kidney masses detected - Labs: PSA test in July was normal Plan 1. Microscopic Hematuria - Plan to perform cystoscopy to examine the bladder for any abnormal growths. - Urine cytology test to be conducted to check for abnormal cells. - Patient advised to provide a urine sample for further analysis. 2. Simple Renal Cyst - No immediate intervention required as the cyst is simple and asymptomatic. 3. Diabetes Mellitus - Continue monitoring blood glucose levels and manage with diet and medication as per primary care provider's advice. 4. Mild Prostatic Enlargement - Monitor symptoms and consider further evaluation if urinary symptoms worsen. 5. Aortic Insufficiency - Continue routine follow-up with cardiology and use antibiotics prophylactically for dental procedures. [facility], [facility] Medical History Vitamin D deficiency Annual physical exam Vertigo Anxiety Diabetic eye exam Over weight Hypertension Diabetes Hyperlipidemia Surgical History H/O colonoscopy No pertinent past surgical history Family History Father Liver cancer Substance use disorder Mother Lung cancer Brother Substance use disorder Sister Substance use disorder Social History Housing: House Alcohol intake: current Alcohol intake frequency: a few times a month Patient Tobacco Use Status: Never used Tobacco e-Cigarette/Vaping Use: Never Used service: No Current occupational status: employed Cognitive needs: No Hearing needs: No Vision needs: Yes Results AMB Urinalysis, Automated UA Leukoctes 0 Nino/uL Last Edit by Maria G Shore on 01/15/25 16:26 UA Nitrite Negative Last Edit by Maria G Shore on 01/15/25 16:26 UA Urobilinogen 0.2 mg/dL Last Edit by Maria G Shore on 01/15/25 16:26 UA Protein 15 mg/dL Last Edit by Maria G Shore on 01/15/25 16:26 UA pH 6.0 Last Edit by Maria G Shore on 01/15/25 16:26 UA Blood 80 Omkar/uL Last Edit by Maria G Shore on 01/15/25 16:26 UA Specific [place] 1.015 Last Edit by Maria G Shore on 01/15/25 16:26 UA Ketone Negative Last Edit by Maria G Shore on 01/15/25 16:26 UA Bilirubin 0 mg/dL Last Edit by Maria G Shore on 01/15/25 16:26 UA Glucose 0 mg/dL Last Edit by Maria G Shore on 01/15/25 16:26 Results Reviewed Results Reviewed: Date of Service: 09/12/24 US Renal Comparison: None Findings: Right kidney normal size and echotexture, 11.4 cm length. Left kidney normal size and echotexture, 11.2 cm length. No hydronephrosis of either kidney. Normal color Doppler. There is a bosniak 1 left renal cortical 1.0 x 0.8 x 1.3 cm cyst Urinary bladder is unremarkable. Prevoid volume 148 mL. Postvoid volume 13 mL. Bilateral ureteral jets are visualized. The prostate gland measures 4.2 x 3.1 x 3.1 cm IMPRESSION: 1. No acute findings. Assessment & Plan Assessment & Plan Orders: Orders AMB Urinalysis Automated Today R31.9 - Hematuria, unspecified Urine Cytology Today R31.9 - Hematuria, unspecified Coding
--- OUTSIDE RECORDS SUMMARY | 2025-01-15 09:34 | XMS_ITS | Clinical Summary ---
Author Organization [facility] Address [address] [place] [address] Phone Care Team Providers Care Dog Handler Or Trainer Name Role Phone Jodi Jackman MD Primary Care Provider Allergies Active Allergy Reactions Criticality Noted Date Comments Telmisartan Hives 06/01/2006 Medications metFORMIN XR (GLUCOPHAGE-XR) 500 mg 24 hr tablet Take 4 tablets (2,000 mg total) by mouth at bedtime. 02/08/2017 Active pravastatin (PRAVACHOL) 20 mg tablet Take 1 tablet (20 mg total) by mouth at bedtime. Active verapamil ER (VERELAN) 240 mg 24 hr capsule Take 1 capsule (240 mg total) by mouth at bedtime. 04/03/2017 Active coenzyme Q-10 200 mg capsule Take 1 capsule (200 mg total) by mouth at bedtime. Active VITAMIN K2 ORAL Take by mouth at bedtime. Active cholecalciferol , vitamin D3, (VITAMIN D3 ORAL) Take by mouth at bedtime. Active Active Problems Problem Noted Date Diagnosed Date Bicuspid aortic valve 01/14/2025 Overview (01/14/2025): - Most recent echocardiogram 01/2023 showed normal LVEF 55-60%, normal LV size and wall thickness, no wall motion abnormalities, mildly dilated left atrium, normal right atrial size, normal RV size and function, bicuspid aortic valve without aortic stenosis though mild aortic insufficiency, with normal aortic root, unchanged when compared to echocardiogram 10/2019. - MRA brain 12/2022 showed no evidence of an intracranial aneurysm and a normal head Assessment & Plan (01/14/2025 7:49 PM EDT): The patient has a bicuspid aortic valve but has not had any significant stenosis. He has mild AI. He is asymptomatic, and has no activity limitations. Will update his echocardiogram at his convenience as it has been about 2 years since his last. He does not have any concerning murmurs. I will notify him of the results once they are available to me. Primary hypertension 01/14/2025 Assessment & Plan (01/14/2025 7:51 PM EDT): Blood pressure somewhat robust in the office today. Continue calcium channel isac at current dose. Increasing his exercise will [...] his PCP should his blood pressure remain elevated. He has a visit coming up with her in the next month or so Other hyperlipidemia 01/14/2025 Assessment & Plan (01/14/2025 7:51 PM EDT): The patient remains on statin therapy. I do not have a recent lipid profile. Ideally, given his diabetes, LDL should be at least less than 100, but is close to 70 as possible. For now, defer further management to his PCP Encounters Date Type Department Care Team Description 01/15/2025 Telephone [facility] Cardiology [facility] [address] [place] [phone] Dasia Slaughter MA 01/12/2025 10:40 AM EDT Office Visit [facility] Cardiology [facility] [address] [place] [phone] Mell Payne NP Bicuspid aortic valve (Primary Dx); Primary hypertension; Other hyperlipidemia 01/08/2025 Telephone [facility] Cardiology [facility] [address] [place] [address] Mell Payne NP from Last 3 Months Surgical History Surgery Date Site/Laterality Comments WISDOM [...] disorder Diabetes mellitus type 2, co ntrolled ([facility] V24, [facility] V28) 06/01/2006 DX:Diabetes mellitus type 2 , controlled ([facility]) Esophageal reflux 08/21/2014 DX:Esophageal reflux Facial droop 06/05/2017 DX:Facial droop; COMMENT: Known left sided facial droop secondary to ear surgery Hyperlipidemia 10/08/2006 DX:Hyperlipidemi a Hypertension 08/21/2014 DX:Hypertension Family History Medical History Relation Name Comments Diabetes Brother 1 CABG Father Hypertension Father liver canc er, smoker, etoh, CABG bicuspid aortic valve Father Diabetes Maternal Grandmother Lung cancer Mother Diabetes [...] Mass Index 29.33 01/12/2025 10:42 AM EDT Plan of Treatment Health Maintenance Due Date Last Done Comments Diabetes: Annual GFR (Glomerular Filtration Rate) 1964 Diabetes: Annual Foot Exam 1974 Diabetes: Annual Retina Eye Exam 1974 Pneumococcal Vaccine: 50+ Years (2 of 2 - PCV) 2014 03/16/2000 Zoster Vaccines (1 of 2) 2014 Colorectal Cancer Screening: Colonoscopy 01/19/2019 01/19/2009 DTaP,Tdap,and Td Vaccines (3 - Td or Tdap) 05/30/2021 05/30/2011, 02/14/2001 Cholesterol Screening (Lipid Panel) 05/15/2023 Diabetes: Annual Urine Albumin-Creatinine Ratio (uACR) 05/15/2023 Diabetes: Blood Sugar Contro l Test (HGBA1C) 05/15/2023 HIV Screening 05/15/2023 Hepatitis C Screening 05/15/2023 Hypertension/CHF/CAD Annual BMP Blood Test 05/15/2023 Social Influencers of Health Screening 05/15/2023 Depression Screening 04/16/2024 COVID-19 Vaccine ( - 2023-2 5 season) 2024 Influenza Vaccine (#1) 2024 02/14/2006 RSV Immunization [...] 01/14/2025 7:53 PM EDT Bicuspid aortic valve EXTERNAL COLONOSCOPY REPORT Routine 01/19/2009 1:37 PM EDT from Last 3 Months or Most Recently Relevant to Health Maintenance Results * ECG 12 lead (01/14/2025 7:53 PM EDT) 01/12/2025 10:4 7 AM EDT 01/12/2025 11:03 AM EDT Mell Payne NP ECG ORDERABLES Final Result GEMUSE * External Colonoscopy Report (01/19/2009 1:37 PM EDT) Anatomical Region Laterality Modality Endoscopy Historical Provider GI~PROCEDURE ORDERABLES F inal Result from Last 3 Months or Most Recently Relevant to Health Maintenance Insurance [place] [address] [address] [place] [address] Care Teams Dog Handler Or Trainer Relationship Specialty Start Date End Date Jodi Jackman MD [address] [place] [address] PCP - General Internal Medicine 01/08/25
--- OUTSIDE RECORDS SUMMARY | 2025-01-15 09:34 | XMS_ITS | Encounter Summary ---
Author Organization [facility] [place] [address] Care Team Providers Care Business Excellence Manager Name Role Phone Jodi Jackman MD Primary Care Provider [phone] Reason for Visit * Reason Onset Date Comments requested lab results 01/15/2025 Encounter Details Date Type Department Care Team ([facility] st Contact Info) Description 01/15/2025 Telephone [facility] [address] [facility] [address] [place] [phone] Dasia Slaughter MA Social History Tobacco Use Types Packs/Day Years [...] on file documented as of this encounter Progress Notes * Dasia Slaughter MA - 01/15/2025 8:44 AM EDT I have requested a copy of most recent labs to be faxed to us from pcp documented in this encounter Plan of Treatment Not on file documented as of this encounter Visit Diagnoses Not on filedocumented in this encounter Care Teams Business Excellence Manager Relationship Specialty Start Date End Date Jodi Jackman MD [address] [place], [place] [id number] PCP - General Internal Medicine 01/08/25 documented as of this encounter
--- OUTSIDE RECORDS SUMMARY | 2025-01-15 09:34 | XMS_ITS | Encounter Summary ---
Author Organization [facility] [place] [address] Care Team Providers Care Network Design Architect Name Role Phone Jodi Jackman MD Primary Care Provider [phone] Reason for Visit * Reason Onset Date Comments requested records 01/08/2025 Encounter Details Date Type Department Care Team ([facility] st Contact Info) Description 01/08/2025 Telephone [facility] - [facility] [address] [facility] [address] [place] [phone] Mell Payne NP [address] [place] [address] Social History Tobacco Use Types Packs/Day Years [...] Progress Notes * Dasia Slaughter MA - 01/08/2025 4:10 PM EDT I have requested last pcp note and labs Nothing in Care everywhere after I updated it documented in this encounter Plan of Treatment Not on file documented as of this encounter Visit Diagnoses Not on filedocumented in this encounter Care Teams Network Design Architect Relationship Specialty Start Date End Date Jodi Jackman MD [facility] [place] [address] PCP - General Internal Medicine 01/08/25 documented as of this encounter
== END 2025-01-15 09:45 | disposition home or self-care (01) ==
LOC: HO.HUSH 08:56
PROVIDERS: PCP Internal Medicine; Visit Provider Urology
DX: R31.9 Hematuria, unspecified (principal)

== ENCOUNTER 2025-02-03 08:33 | Outpatient (REF) | payer OTHER, SELFPAY ==
[2025-02-03 10:46] LABS: MANUAL DIFF FLAG NO
[2025-02-03 10:55] LABS: Hematocrit 43.5 % (42.0-52.0); Hemoglobin 14.5 g/dl (14.0-18.0); Imm Gran Abs Auto 0.02 X10*3/uL (0.00-0.03); Imm Gran Pct Auto 0.4 % (0.0-0.4); Lymphocytes Absolute Auto 1.6 X10*3/uL (1.2-4.9); Mean Corpuscular HGB Conc 33.3 g/dl (31.0-36.0); Mean Corpuscular Hemoglobin 29.1 pg (27.0-33.0); Mean Corpuscular Volume 87.2 fL (80.0-98.0); NRBC Abs Auto 0.000 X10*3/uL (0.0-0.012); NRBC Pct Auto 0.0 /100WBC (0.0-0.2); Platelet Count 227 X10*3/uL (160-400); Red Blood Count 4.99 X10*6/uL (4.60-5.80); White Blood Count 5.4 X10*3/uL (4.8-10.8)
[2025-02-03 11:15] LABS: Alanine Aminotransferase 21 U/L (0-40); Albumin Level 4.4 g/dL (3.5-5.0); Alkaline Phosphatase 65 U/L (39-117); Anion Gap 13 (12-20); Aspartate Amino Transferase 19 U/L (5-37); Blood Urea Nitrogen 19 mg/dL (9-16); Calcium 9.6 mg/dL (8.4-10.2); Carbon Dioxide 29 mmol/L (22-29); Chloride 103 mmol/L (96-108); Cholesterol 152 mg/dL (<200); Estimated Glomerular Filt Rate > 60; HDL Cholesterol 46 mg/dL (>40); Potassium 4.5 mmol/L (3.3-5.1); Sodium 140 mmol/L (135-145); Total Protein 7.1 g/dL (6.5-8.0); Triglycerides 111 mg/dL (<150)
== END 2025-02-03 08:34 | disposition home or self-care (01) ==
LOC: HO.HMGCLDS 08:33
PROVIDERS: PCP Internal Medicine; Visit Provider Internal Medicine
DX: E11.9 Type 2 diabetes mellitus without complications (principal); I10 Essential (primary) hypertension
CPT/HCPCS: 36415; 80053; 80061; 83036; 85025

== ENCOUNTER 2025-02-06 08:22 | Outpatient (REF) | payer OTHER, SELFPAY | END 2025-02-06 08:23 | disposition home or self-care (01) | LOC: HO.HMGCLDS 08:22 | PROVIDERS: PCP Internal Medicine; Visit Provider Internal Medicine | DX: I10 Essential (primary) hypertension (principal); E11.9 Type 2 diabetes mellitus without complications | CPT/HCPCS: 82570 ==

== ENCOUNTER 2025-02-09 09:05 | Outpatient (AMB) | payer OTHER, SELFPAY ==
[2025-02-09 09:14] VITALS: BP 134/70; PULSE 60; RESP 17; TEMP 36.3; O2SAT 100; BMI 29.6
--- NOTE | 2025-02-09 09:14 | MHC.PC.OV ---
Vital Signs 02/09/25 09:14 Height 5 ft 8 in Weight 195 lb BMI 29.6 BP 134/70 Blood Pressure Location Lt brachial Position Sitting Respiration 17 Pulse 60 Pulse Source Pulse Oximeter Temp 97.4 F Temp Source Oral Pulse Oximetry (%) 100 Oxygen Delivery Method Room Air Intake Visit Reasons: 3 months f/up Intake Note: Pt is here today for 3 months follow up visit. Allergies telmisartan (Micardis) Allergy (Unknown, Verified 02/09/25 09:27) hives Medication List - Last Reconciled 02/09/25 by Jodi Jackman MD amoxicillin 2,000 mg (4 x 500 mg) PO ONCE betamethasone valerate 0.1% apply topically daily PRN; hydrocortisone 2.5% 1 appl topical BID metformin ER 2,000 mg (4 x 500 mg) PO QAM pravastatin 20 mg PO DAILY triamcinolone acetonide 0.1% 1 appl topical DAILY verapamil ER 240 mg PO DAILY Tobacco use date assessed: 02/09/25 Dental Screening Dental Screen Date: 08/08/24 HPI 3 months f/up HPI Details Pt presents for f/u DM 2, hyperlipid, HTN, stable on meds. Pt has not been eating ADA diet and has been drinking craft beer every night after dinner. [facility] Medical History Vitamin D deficiency Annual physical exam Vertigo Anxiety Diabetic eye exam Over weight Hypertension Diabetes Hyperlipidemia Surgical History H/O colonoscopy No pertinent past surgical history Family History Father Liver cancer Substance use disorder Mother Lung cancer Brother Substance use disorder Sister Substance use disorder Social History Housing: House Alcohol intake: current Alcohol intake frequency: a few times a month Patient Tobacco Use Status: Never used Tobacco e-Cigarette/Vaping Use: Never Used service: No Current occupational status: employed Cognitive needs: No Hearing needs: No Vision needs: Yes Questionnaire PHQ-9 Over the last 2 weeks, how often have you been bothered by any of the following problems? 1. Little interest or pleasure in doing things: not at all 2. Feeling down, depressed, or hopeless: not at all 3. Trouble falling or staying asleep, or sleeping too much: not at all 4. Feeling tired or having little energy: not at all 5. Poor appetite or overeating: not at all 6. Feeling bad about yourself - or that you are a failure or have let yourself or your family down: not at all 7. Trouble concentrating on things, such as reading the newspaper or watching television: not at all 8. Moving or speaking so slowly that other people could have noticed. Or the opposite - being so fidgety or restless that you have been moving around a lot more than usual: not at all 9. Thoughts that you would be better off or of hurting yourself in some way: not at all Total score: 0 Depression Screening Interpretation: Negative Depression Screening Done: Yes Source: Developed by Drs. Matheus Moreno, Denise Gregg, Pa Quarles and colleagues, with an educational rosario from [employer]. Thrive Questionnaire Date Thrive assessed: 08/02/24 I am a: Patient What is your living situation today?: I have a steady place to live Within the past 12 months, did the food you bought not last and you didn't have the money to get more?: Never true Within the past 12 months, did you worry whether your food would run out before you got money to buy more?: Never true Do you have trouble paying for medicines?: No Do you have trouble getting transportation to medical appointments?: No Do you have trouble paying your heating and electricity bill?: No Do you have trouble taking care of your child, family member or friend?: No Do you have trouble with day-to-day activities such as bathing, preparing meals, shopping, managing finances, etc.?: No Are you currently unemployed and looking for a job?: No Are you interested in more education?: No Please select the resources that you would like help with: None Currently or been in a relationship where the following occur: No concerns reported THRIVE Score: 0 GUY-7 AMB Questionnaire GUY-7 Date GUY - 7 assessed: 08/08/24 Feeling nervous, anxious, or on edge: 0 = Not at all Not being able to stop or control worryin = Not at all Worrying too much about different things: 0 = Not at all Trouble relaxin = Not at all Being so restless that it is hard to sit still: 0 = Not at all Becoming easily annoyed or irritable: 0 = Not at all Feeling afraid as if something awful might happen: 0 = Not at all Total GUY-7 score (0-4 normal; 5-9 mild; 10-14 moderate; 15-21 severe): 0 Source: Developed by Drs. Matheus Moreno, Denise Gregg, Pa Quarles and colleagues, with an educational rosario from [employer]. Review of Systems Const All systems reviewed & are unremarkable except as noted in HPI and below Card Reports no additional complaints Resp Reports no additional complaints GI Reports no additional complaints Reports no additional complaints Physical exam (Primary Care) Vital Signs: Last Vital Signs Temp 97.4 F 02/09/25 09:14 Pulse 60 02/09/25 09:14 Resp 17 02/09/25 09:14 BP 134/70 02/09/25 09:14 Pulse Ox 100 02/09/25 09:14 Oxygen Delivery Method Room Air 02/09/25 09:14 BMI result Body Mass Index 29.6 Tobacco/Smoking Status: Tobacco use Status Tobacco use date assessed 02/09/25 02/09/25 09:29 Patient Tobacco Use Status Never used Tobacco 02/09/25 09:15 e-Cigarette/Vaping Use Never Used 02/09/25 09:15 PHQ-9: PHQ-9 Score PHQ-9: Total score 0 02/09/25 10:00 Depression Screening Interpretation: Negative Thrive Assessment: Date of Thrive Assessment Date Thrive assessed 08/02/24 02/09/25 09:15 Currently or been in a relationship where the following occur: No concerns reported Const General: no acute distress HENMT Face and sinus: Yes normal facial exam Neck Neck: Yes supple Resp Effort & Inspection: normal respiratory effort Auscultation: clear to auscultation bilaterally Cardio Rhythm: regular rhythm Heart sounds: S1 normal heart sound present and S2 normal heart sound present GI Inspection: Yes normal to inspection Palpation (GI): Soft to palpation Percussion: Yes normal to percussion Results AMB Random Glucose (hemocue) AMB Random Glucose (hemocue) 169 mg/dL Last Edit by LUIS E Childress on 02/09/25 10:02 Results Reviewed Results Reviewed: Laboratory Last Values Random Glu (Clinic) 169 mg/dL 02/09/25 10:00 Coding Level of Care Code Est Pt Level 4 (66258) Diagnoses Hypertension I10 Hyperlipidemia E78.5 Diabetes E11.9 Assessment & Plan Assessment & Plan (1) Hypertension: Comment: ARB hives Code(s): I10 - Essential (primary) hypertension Category: Medical Plan: Continue current medications (2) Hyperlipidemia: Code(s): E78.5 - Hyperlipidemia, unspecified Category: Medical Plan: Continue statin (3) Diabetes: Comment: Patient refused Pneumovax Code(s): E11.9 - Type 2 diabetes mellitus without complications Category: Medical Plan: A1c was 7.0. ADA diet increase exercise weight loss discussed with the patient .he declined taking additional medications. Patient will continue metformin and will follow-up in 3 months with a fasting labs before Orders: Orders Comprehensive [place]. Panel Fast 3 Months E11.9 - Type 2 diabetes mellitus without complications, E78.5 - Hyperlipidemia, unspecified, I10 - Essential (primary) hypertension Complete Blood Count Auto Diff 3 Months E11.9 - Type 2 diabetes mellitus without complications, E78.5 - Hyperlipidemia, unspecified, I10 - Essential (primary) hypertension AMB Random Glucose (hemocue) Today Z13.9 - Encounter for screening, unspecified Lipid Panel 3 Months E11.9 - Type 2 diabetes mellitus without complications, E78.5 - Hyperlipidemia, unspecified, I10 - Essential (primary) hypertension Hemoglobin A1c 3 Months E11.9 - Type 2 diabetes mellitus without complications, E78.5 - Hyperlipidemia, unspecified, I10 - Essential (primary) hypertension Microalbumin, Random (w Creat) 3 Months E11.9 - Type 2 diabetes mellitus without complications, E78.5 - Hyperlipidemia, unspecified, I10 - Essential (primary) hypertension
--- OUTSIDE RECORDS SUMMARY | 2025-02-09 09:58 | XMS_ITS | Clinical Summary ---
Author Organization [address] [facility] Address [address] [place] [address] Phone Care Team Providers Care Plastic Die Maker Apprentice Name Role Phone Jodi Jackman MD Primary [...] Type Department Care Team Description 01/15/2025 Telephone [facility] Cardiology [facility] [address] [place] [phone] Dasia Slaughter MA 01/12/2025 10:40 AM EDT Office Visit [facility] Cardiology [facility] [address] [place] [phone] Mell Payne NP Bicuspid aortic valve (Primary Dx); Primary hypertension; Other hyperlipidemia 01/08/2025 Telephone [facility] Cardiology [facility] [address] [place] [address] Mell Payne NP from Last [...] disorder Diabetes mellitus type 2, co ntrolled ([facility] V24, [facility] V28) 06/01/2006 DX:Diabetes mellitus type [...] 01/12/2025 10:42 AM EDT Plan of Treatment Upcoming Encounters Date Type Department Care Team (Late st Contact Info) Description 06/05/2025 9:00 AM EST Ancillary Procedure [facility] [address] [place] [address] Health Maintenance Due Date Last Done Comments [...] ECG 12 lead (01/14/2025 7:53 PM EDT) Ventricular Rate ECG 66 BPM GEMUSE Atrial Rate 66 BPM GEMUSE P-R Interval 202 ms GEMUSE QRS Duration 94 ms GEMUSE Q-T Interval 440 ms GEMUSE QTc 461 ms GEMUSE P Wave [place] 63 degrees GEMUSE R [place] 70 degrees GEMUSE T [place] 69 degrees GEMUSE ECG Interpretation Sinus rhythm with Premature atrial complexes Otherwise normal ECG No previous ECGs available Confirmed by Kelley PUENTES JOHN ([id number]) on 01/15/2025 12:57:46 PM GEMUSE 01/12/2025 10:4 7 AM EDT 01/15/2025 12:57 PM EDT Mell Payne NP ECG ORDERABLES Edited Result - Final GEMUSE * External Colonoscopy Report (01/19/2009 1:37 PM EDT) Anatomical Region Laterality Modality Endoscopy us Historical Provider GI~PROCEDURE ORDERABLES F inal Result from Last 3 Months or Most Recently Relevant to Health Maintenance Insurance [facility] [address] [place] [address] Care Teams Plastic Die Maker Apprentice Relationship Specialty Start Date End Date Jodi Jackman MD [facility] [place] [address] PCP - General Internal Medicine 01/08/25
== END 2025-02-09 10:07 | disposition home or self-care (01) ==
LOC: HO.HMCC 09:06
PROVIDERS: PCP Internal Medicine; Visit Provider Internal Medicine
DX: I10 Essential (primary) hypertension (principal); E78.5 Hyperlipidemia, unspecified; E11.9 Type 2 diabetes mellitus without complications; Z13.9 Encounter for screening, unspecified

== ENCOUNTER → 2025-02-09 09:05 | Outpatient (BNVA) | payer OTHER, SELFPAY | PROVIDERS: PCP Internal Medicine; Visit Provider Internal Medicine | DX: E11.9 Type 2 diabetes mellitus without complications (principal); E78.5 Hyperlipidemia, unspecified; I10 Essential (primary) hypertension | CPT/HCPCS: 82948; 96127 ==

== ENCOUNTER 2025-02-27 14:15 | Outpatient (AMB) | payer OTHER, SELFPAY ==
--- NOTE | 2025-02-27 14:45 | MHC.OFFVIS ---
Intake Visit Reasons: Cysto Intake Note: Patient presents to office today for a cystoscopy Urology Medication:None Blood Thinner:None Antibiotic Allergies:None Lot #:[id number] Exp:09/23/27 Allergies telmisartan (Micardis) Allergy (Unknown, Verified 02/27/25 14:50) hives HPI Comments Details: 02/27/25--here for office cystoscopy Cystoscopy findings: prostatic urethra non obstructive bulbous urethra WNL, no suspicious bladder lesions visualized Microscopic Hematuria, no evidence of malignancy at this time 01/15/2025--Matheus is here as a new patient evaluation for microscopic hematuria he had a renal ultrasound done August 2024 small simple renal cyst otherwise normal finding. Diabetes comorbidity, denies nicotine use. History of Present Illness The patient is a 59-year-old male presenting with microscopic hematuria. The hematuria was initially detected in July during a routine urine test, but subsequent testing in October showed no blood in the urine. Despite the intermittent nature of the hematuria, further evaluation is necessary to rule out any underlying pathology. A renal ultrasound conducted in August revealed a small, simple renal cyst, but no other abnormalities were noted. The prostate was found to be mildly enlarged, but no masses were detected in the kidneys. The patient has a history of diabetes mellitus and denies any nicotine use. He also reports a family history of liver cancer, likely due to occupational exposure to chemicals, and lung cancer, attributed to secondhand smoke exposure. The patient experiences increased urgency in urination, which he attributes to aging, and reports nocturia occurring every 2-3 hours, a pattern that has persisted for many years. He consumes fluids, including caffeinated beverages and beer, which may contribute to his urinary symptoms. The patient has a known aortic insufficiency and requires antibiotics for dental procedures to prevent endocarditis. Results - Labs: Urine test in July showed microscopic hematuria; October test showed no blood - Imaging: Renal ultrasound in August showed a small, simple renal cyst - Imaging: Prostate mildly enlarged, no kidney masses detected - Labs: PSA test in July was normal Plan 1. Microscopic Hematuria - Plan to perform cystoscopy to examine the bladder for any abnormal growths. - Urine cytology test to be conducted to check for abnormal cells. - Patient advised to provide a urine sample for further analysis. 2. Simple Renal Cyst - No immediate intervention required as the cyst is simple and asymptomatic. 3. Diabetes Mellitus - CoMorbidity 4. Mild Prostatic Enlargement - Monitor symptoms and consider further evaluation if urinary symptoms worsen. PFSH Medical History Vitamin D deficiency Annual physical exam Vertigo Anxiety Diabetic eye exam Over weight Hypertension Diabetes Hyperlipidemia Surgical History H/O colonoscopy No pertinent past surgical history Family History Father Liver cancer Substance use disorder Mother Lung cancer Brother Substance use disorder Sister Substance use disorder Social History Housing: House Alcohol intake: current Alcohol intake frequency: a few times a month Patient Tobacco Use Status: Never used Tobacco e-Cigarette/Vaping Use: Never Used service: No Current occupational status: employed Cognitive needs: No Hearing needs: No Vision needs: Yes Office Procedures Cystoscopy Consent Discussed risk and benefit or proposed procedure with the patient. Information consent for procedure given to the patient. Discussed technical aspects, risks, benefits and alternatives in full. Addressed all of the patient's questions and concerns regarding the procedure. The patient demonstrated knowledge and understanding. They wish to proceed with this procedure. Preparation The patient was prepped in the usual manner. A brake engineer was present and in the room. Genitalia was prepped with betadine solution in a sterile manner. Lidocaine Jelly 2% was placed into the urethra and 16Fr flexible Olympus cystoscope was inserted into the meatus after adequate lubrication. Procedure Time out per protocol performed. The flexible cystoscope is passed transurethrally: The bladder was inspected in its entirety with utilization retroflexion displaying: Tumor(s): no suspicious bladder lesions visualized Trabeculation: NA Mucosal Erthema: Orifices: normal shape and position Urethra: normal Cystoscopy findings: prostatic urethra non obstructive bulbous urethra WNL, no suspicious bladder lesions visualized [id number] DISPOSABLE SCOPE URO-G FLEXIBLE SCOPE Procedure code (CPT) selection complete Office Meds lidocaine HCl 2 % mucosal jelly in applicator Performing Provider: Matthieu Glaser MD Performing [facility] Administered by: My Gold RN on 02/27/25 15:13 Dose Route Admin Location Dispensed Lot Number Expiration Date [facility] Head Operator Sulfide 10 mL intra-urethral 20 mL nitrofurantoin monohydrate/macrocrystals 100 mg capsule Performing Provider: Matthieu Glaser MD Performing Location: [facility] Administered by: My Gold RN on 02/27/25 15:13 Dose Route Admin Location Dispensed Lot Number Expiration Date NDC Head Operator Sulfide 100 mg PO 1 cap phenazopyridine 200 mg tablet Performing Provider: Matthieu Glaser MD Performing Location: [facility] Administered by: My Gold RN on 02/27/25 15:13 Dose Route Admin Location Dispensed Lot Number Expiration Date NDC Head Operator Sulfide 200 mg PO 1 tab Results AMB Urinalysis, Automated UA Leukoctes 0 Nino/uL Last Edit by Maria G Shore on 02/27/25 16:52 UA Nitrite Negative Last Edit by Maria G Shore on 02/27/25 16:52 UA Urobilinogen 0.2 mg/dL Last Edit by Maria G Shore on 02/27/25 16:52 UA Protein 15 mg/dL Last Edit by Maria G Shore on 02/27/25 16:52 UA pH 6.0 Last Edit by Maria G Shore on 02/27/25 16:52 UA Blood 25 Omkar/uL Last Edit by Maria G Shore on 02/27/25 16:52 UA Specific [place] 1.020 Last Edit by Maria G Shore on 02/27/25 16:52 UA Ketone Negative Last Edit by Maria G Shore on 02/27/25 16:52 UA Bilirubin 0 mg/dL Last Edit by Maria G Shore on 02/27/25 16:52 UA Glucose 0 mg/dL Last Edit by Maria G Shore on 02/27/25 16:52 Results Reviewed Results Reviewed: Laboratory Last Values Urine pH (Auto) 6.0 02/27/25 16:02 Specific [place] (Auto) 1.020 02/27/25 16:02 Urine Protein (Auto) 15 mg/dL 02/27/25 16:02 Glucose (UA)(Auto) 0 mg/dL 02/27/25 16:02 Urine Ketones (Auto) Negative 02/27/25 16:02 Urine Blood (Auto) 25 Omkar/uL 02/27/25 16:02 Urine Nitrite (Auto) Negative 02/27/25 16:02 Urine Bilirubin (Auto) 0 mg/dL 02/27/25 16:02 Urine Urobilinogen (Auto) 0.2 mg/dL 02/27/25 16:02 Leukocyte Esterase (Auto) 0 Nino/uL 02/27/25 16:02 Date of Service: 09/12/24 US Renal Comparison: None Findings: Right kidney normal size and echotexture, 11.4 cm length. Left kidney normal size and echotexture, 11.2 cm length. No hydronephrosis of either kidney. Normal color Doppler. There is a bosniak 1 left renal cortical 1.0 x 0.8 x 1.3 cm cyst Urinary bladder is unremarkable. Prevoid volume 148 mL. Postvoid volume 13 mL. Bilateral ureteral jets are visualized. The prostate gland measures 4.2 x 3.1 x 3.1 cm IMPRESSION: 1. No acute findings. Assessment & Plan Assessment & Plan (1) Microscopic hematuria: Comment: Negative renal and bladder ultrasound 08/2024 Code(s): R31.29 - Other microscopic hematuria Category: Medical (2) BPH (benign prostatic hyperplasia): Code(s): N40.0 - Benign prostatic hyperplasia without lower urinary tract symptoms Category: Medical (3) Renal cyst: Code(s): N28.1 - Cyst of kidney, acquired Category: Medical Plan Cystoscopy findings: prostatic urethra non obstructive bulbous urethra WNL, no suspicious bladder lesions visualized Microscopic Hematuria, no evidence of malignancy at this time FU one year PSA screening Orders: Orders AMB Cystoscopy 02/27/25 R31.29 - Other microscopic hematuria AMB Urinalysis Automated 02/27/25 Z13.9 - Encounter for screening, unspecified Patient Instructions: The patient had an opportunity to ask questions regarding treatment plan. The patient expressed understanding and agreement with the above treatment plan. The patient is aware they should contact our office by phone for worsening of their current condition or the appearance of new symptoms. Compliance is encouraged with any medications and followup testing that is ordered. It is a privilege to be allowed the opportunity to participate in the urologic care of your patient. If you have any questions or concerns regarding treatment for the above conditions please do not hesitate to contact me. The office telephone contact is [phone]. This note is constructed in part using voice recognition software. While every effort has been made to ensure accuracy data security coordinator errors may have been included. Yours sincerely, Matthieu Glaser MD Scribe Plan - Not visible on output: Patient was informed and verbally consented to the use of an ambient scribe for clinic note documentation during this visit. Coding Level of Care Code Procedure Only Diagnoses Microscopic hematuria R31.29 BPH (benign prostatic hyperplasia) N40.0 Renal cyst N28.1 CPT Codes Cystoscopy - CPT: 22503-[id number] ([id number])
--- OUTSIDE RECORDS SUMMARY | 2025-02-27 21:13 | XMS_ITS | Clinical Summary ---
Author Organization [address] [facility] Address [address] [place] [address] Phone Care Team Providers Care Spa Receptionist Name Role Phone Jodi Jackman MD Primary Care Provider [phone] Allergies Active Allergy Reactions Criticality Noted Date [...] Type Department Care Team Description 01/15/2025 Telephone [facility] Cardiology [facility] [address] [place] [id number] Dasia Slaughter MA 01/12/2025 10:40 AM EDT Office Visit [facility] Cardiology [facility] [address] [place] [id number] Mell Payne NP Bicuspid aortic valve (Primary Dx); Primary hypertension; Other hyperlipidemia 01/08/2025 Telephone [facility] Cardiology [facility] [address] [place] [address] Mell Payne NP from Last [...] disorder Diabetes mellitus type 2, co ntrolled ([facility] V24, [facility] V28) 06/01/2006 DX:Diabetes mellitus type 2 , controlled ([facility]) Esophageal reflux 08/21/2014 DX:Esophageal reflux [...] Description 06/05/2025 9:00 AM EST Ancillary Procedure [facility] [address] [place] [address] Health Maintenance Due Date Last [...] Depression Screening 04/16/2024 COVID-19 Vaccine ( - 2024-2 6 season) 2024 Influenza Vaccine (#1) 2024 02/14/2006 [...] GEMUSE QTc 461 ms GEMUSE P Wave [place] 63 degrees GEMUSE R [place] 70 degrees GEMUSE T [place] 69 degrees GEMUSE ECG Interpretation Sinus rhythm with Premature atrial complexes Otherwise normal ECG No previous ECGs available Confirmed by Kelley PUENTES JOHN ([id number]) on 01/15/2025 12:57:46 PM GEMUSE 01/12/2025 10:4 7 AM EDT 01/15/2025 12:57 PM EDT Mell Payne NP ECG ORDERABLES Edited Result - Final GEMUSE * External Colonoscopy Report (01/19/2009 1:37 PM EDT) Anatomical Region Laterality Modality Endoscopy us Historical Provider GI~PROCEDURE ORDERABLES F inal Result from Last 3 Months or Most Recently Relevant to Health Maintenance Insurance [facility] [address] [place] [address] Care Teams Spa Receptionist Relationship Specialty Start Date End Date Jodi Jackman MD [facility] [place] [address] PCP - General Internal Medicine 01/08/25
== END 2025-02-27 15:46 | disposition home or self-care (01) ==
LOC: HO.HUSH 14:16
PROVIDERS: PCP Internal Medicine; Visit Provider Urology
DX: R31.29 Other microscopic hematuria (principal)
CPT/HCPCS: 52000

== ENCOUNTER → 2025-02-27 14:15 | Outpatient (BNVA) | payer OTHER, SELFPAY | PROVIDERS: PCP Internal Medicine; Visit Provider Urology | DX: R31.29 Other microscopic hematuria (principal); N40.0 Benign prostatic hyperplasia without lower urinary tract symptoms; N28.1 Cyst of kidney, acquired; E11.9 Type 2 diabetes mellitus without complications | CPT/HCPCS: 52000; 81003 ==